=== PATIENT | female | born 1955 | race Caucasian/White ===

== ENCOUNTER → 2018-07-09 11:02 | Outpatient (CLI) | payer BC, SELFPAY ==
--- NOTE | 2018-07-09 | DI.RAD.S_ITS ---
PROCEDURE: XR ABDOMEN MIN 2V INDICATIONS: KIDNEY STONES TECHNIQUE: 2 views of the abdomen were acquired. COMPARISON: [facility], NARA HERNANDEZ XRAY (1 VIEW ABDOMEN), 03/28/2017, 7:50. FINDINGS: Surgical changes and devices: None. Bowel: No pneumoperitoneum. The bowel gas pattern is normal. Soft tissues: No masses; visualized solid organ contours appear normal in size. 2 calcifications project over the expected upper pole kidney on the left measuring 2 and 3 mm. No calcifications are in the expected locations of the ureters. Bones: No suspicious bony abnormalities. IMPRESSION: Possible, likely nonobstructing left intrarenal calcifications. Dictated by: Taylor Calvert M.D. on 07/09/2018 at 13:54 Approved by: Taylor Calvert M.D. on 07/09/2018 at 13:57
--- NOTE | 2018-07-09 | DI.US.S_ITS ---
PROCEDURE: US THYROID INDICATIONS: Thyrotoxicosis with toxic single thyroid nodule TECHNIQUE: Real-time scanning was performed of the thyroid gland, with image documentation. COMPARISON: None. FINDINGS: Right: Thyroid lobe measures 4.2 x 1.9 x 2.3 cm, and is heterogeneous in echotexture. Left: Thyroid lobe measures 4.6 x 1.8 x 1.7 cm, and is heterogeneous in echotexture. Isthmus: 4 mm thick. Dominant nodules are described as follows: Nodule number: 1 Location: Right middle Size: 1.4 x 0.8 x 1.2 cm. Composition: Solid Echogenicity: Iso-to minimally hypoechoic Shape: wider than tall. Margins: Indistinct Echogenic foci: None Total points: 3 ACR TI-RADS category: Mildly suspicious, continued followup recommended Nodular area number: 2 Location: Deep aspect of the right inferior lobe Size: Approximately 2.3 x 0.8 x 1.2 cm. Composition: predominantly cystic area without a discrete shape Echogenicity: Hypoechoic Shape: wider than tall. Margins: Indistinct Echogenic foci: Occasional punctate Nodule number: 3 Location: Right inferior pole Size: 1.3 x 1.0 x 1.1 cm. Composition: Solid Echogenicity: Hypoechoic Shape: wider than tall. Margins: Smooth Echogenic foci: None Total points: 4 ACR TI-RADS category: Moderately suspicious, continued followup Nodule number: 4 Location: Left superior pole Size: 1.5 x 0.9 x 1.1 cm. although this likely represents 2 nodules measure together. Composition: Solid Echogenicity: Hypoechoic Shape: wider than tall. Margins: Smooth Echogenic foci: None Total points: 4 ACR TI-RADS category: Moderately suspicious, continued followup Nodular area number: 5 Location: Left midpole Size: 1.5 x 0.6 x 1.0 cm. This likely represents a few nodules measure together Composition: Predominantly solid Shape: Wider than tall. Echogenicity: Hypoechoic Margins: Smooth Echogenic foci: None. Total points: 4 ACR TI-RADS category: Moderately suspicious, continued followup. Nodule number: 6 Location: Isthmus Size: 0.6 x 0.5 x 0.6 cm Composition: Solid Echogenicity: Isoechoic Shape: Wider than tall Margin: Smooth Echogenic foci: None Total points: 4 ACR TI-RADS category: Moderately suspicious, continued followup. IMPRESSION: 1. Multinodular thyroid gland as described. 2. Based on ACR criteria, multiple nodules are moderately suspicious and continued followup as described below is recommended. ACR TI-RADS definitions and recommendations: TI-RADS 1 (benign): 0 points. FNA not needed. TI-RADS 2 (not suspicious): 2 points. FNA not needed. TI-RADS 3 (mildly suspicious): 3 points. * FNA if 2.5 cm or larger, follow up if 1.5 cm or larger (at 1, 3, and 5 years). TI-RADS 4 (moderately suspicious): 4-6 points. * FNA if 1.5 cm or larger, follow up if 1 cm or larger (at 1, 2, 3, and 5 years). TI-RADS 5 (highly suspicious): 7 points or more. * FNA if 1 cm or larger, follow up if 0.5 cm or larger (every year for 5 years). Dictated by: Taylor Calvert M.D. on 07/09/2018 at 13:38 Approved by: Taylor Calvert M.D. on 07/09/2018 at 13:54
== END ==
PROVIDERS: PCP Internal Medicine; Visit Provider Internal Medicine
DX: E05.20 Thyrotoxicosis with toxic multinodular goiter without thyrotoxic crisis or storm (principal); N20.0 Calculus of kidney
CPT/HCPCS: 74019; 76536

== ENCOUNTER → 2018-07-30 09:39 | Outpatient (CLI) | payer BC, SELFPAY ==
--- NOTE | 2018-07-30 | DI.MG.S_ITS ---
BILATERAL DIGITAL SCREENING MAMMOGRAM 3D/2D WITH CAD: 07/30/2018 CLINICAL: Routine screening. Family history of breast cancer. Comparison is made to exams dated: 07/24/2017 mammogram, 05/20/2015 mammogram, and 07/05/2016 mammogram - [facility]. There are scattered fibroglandular elements in both breasts. Current study was also evaluated with a Computer Aided Detection (CAD) system. There are benign calcifications in both breasts. No significant masses, calcifications, or other findings are seen in either breast. There has been no significant interval change. IMPRESSION: There is no mammographic evidence of malignancy. A 1 year screening mammogram is recommended. This exam was interpreted at Station ID: [id number]. NOTE: For mammograms, a report in lay terms will be sent to the patient. Approximately 15% of breast malignancies will not be visualized mammographically. In the management of a palpable breast mass, a negative mammogram must not discourage biopsy of a clinically suspicious lesion. Electronically Signed By: [place] el/radhames:07/30/2018 12:08:38 letter sent: Normal Exam ACR BI-RADS Category 2: Benign Finding(s) 3342F
== END ==
PROVIDERS: PCP Internal Medicine; Visit Provider Internal Medicine
DX: Z12.31 Encounter for screening mammogram for malignant neoplasm of breast (principal); Z80.3 Family history of malignant neoplasm of breast
CPT/HCPCS: 77063; 77067

== ENCOUNTER → 2019-01-29 12:27 | Outpatient (CLI) | payer BC, SELFPAY ==
[2019-01-29 12:38] LABS: WBC Urine None Seen (0-5/HPF)
[2019-01-29 12:58] LABS: Appearance Urine UA CLEAR; Bilirubin Urine UA NEGATIVE (NEGATIVE); Color Urine UA YELLOW; Glucose Urine UA NEGATIVE (Negative); Ketones Urine UA NEGATIVE (NEGATIVE); Leukocyte Esterase Urine UA NEGATIVE (NEGATIVE); Nitrite Urine UA NEGATIVE (Negative); Occult Blood Urine UA 1+ (Negative); Protein Urine UA NEGATIVE (Negative); Urobilinogen Urine UA 0.2 E.U./dL (0.2)
[2019-01-29 12:59] LABS: Add Manual Diff / Slide Review NO; Basophils Absolute Auto 0 /uL (0-100); Basophils Percent Auto 0.8 % (0-2); Eosinophils Absolute Auto 100 /uL (0-450); Eosinophils Percent Auto 2.6 % (2-4); Hematocrit 44.8 % (36-46); Hemoglobin 14.9 g/dL (12.0-16.0); Lymphocytes Absolute Auto 1200 /uL (1100-4500); Lymphocytes Percent Auto 31.5 % (25-40); Mean Corpuscular HGB Conc 33.2 % (30-36); Mean Corpuscular Hemoglobin 28.5 PG (26-34); Mean Corpuscular Volume 85.7 fL (80-100); Monocytes Absolute Auto 500 /uL (0-900); Neutrophils Absolute Auto 2000 /uL (1500-7000); Neutrophils Percent Auto 52.1 % (50-75); Platelet Count 232 X10^3/uL (150-400); Red Blood Cell Count 5.23 X10^6/uL (4.0-5.2); Red Cell Distribution Width 13.2 % (11.6-14.8); White Blood Cell Count 3.9 X10^3/uL (4.5-11.0)
[2019-01-29 13:12] LABS: pH Urine UA 7.5 (4.5-8.0)
[2019-01-29 13:13] LABS: Bacteria Urine Occasional (0-1); Culture Indicated Urine Cult Not Indicated; RBC Urine 0-1/HPF (0-5/HPF)
[2019-01-29 13:19] LABS: Erythrocyte Sedimentation Rate 6 MM/HR (0-20)
[2019-01-29 13:54] LABS: Alanine Aminotransferase 22 IU/L (9-52); Albumin 4.3 g/dL (3.5-5.0); Albumin Globulin Ratio 1.3 (1.0-2.8); Alkaline Phosphatase 90 U/L (38-126); Amylase 58 U/L (30-110); Aspartate Aminotransferase 20 IU/L (14-36); Bilirubin Total 0.8 mg/dL (0.2-1.3); Blood Urea Nitrogen 18 mg/dL (7-17); C-Reactive Protein Quant 0.9 mg/dL (<1.0); Calcium 10.6 mg/dL (8.4-10.2); Carbon Dioxide 28 mmol/L (22-32); Chloride 102 mmol/L (98-107); Estimated Glomerular Filt Rate > 60.0 mL/min (>60); Globulin 3.2 g/dL (1.7-4.1); Glucose 108 mg/dL (80-110); Lipase 147 U/L (23-300); Potassium 4.6 mmol/L (3.4-5.1); Sodium 141 mmol/L (137-145); Total Protein 7.5 g/dL (6.3-8.2)
[2019-01-29 13:58] LABS: HEMOLYSIS 0 (0-50)
[2019-01-29 17:33] LABS: TSH w/ Reflex to FT4 1.19 uIU/mL (0.47-4.68)
[2019-01-31 13:55] LABS: Complement C3 148 mg/dL (83-193)
== END ==
PROVIDERS: PCP Internal Medicine; Visit Provider Internal Medicine Rheumatology
DX: M32.9 Systemic lupus erythematosus, unspecified (principal); R53.83 Other fatigue; R10.9 Unspecified abdominal pain
CPT/HCPCS: 36415; 80053; 81001; 82150; 83690; 84443; 85025; 85651; 86140; 86160

== ENCOUNTER 2019-03-25 22:29 | Emergency (ER) | payer BC, SELFPAY ==
--- NOTE | 2019-03-25 22:38 | PC.NURSE ---
Pt actively vomiting in triage. Dr Bhat notified, verbal order received for JUNG barrientos
[2019-03-25] MEDS: ONDANSETRON 4 MG ODT SL (22:40)
[2019-03-25 22:44] VITALS: BP 202/115; PULSE 80; RESP 14; TEMP 36.8; O2SAT 96; BMI 34.7
--- NOTE | 2019-03-25 23:17 | ED_ITS ---
HPI - General Adult General Chief complaint: Abdominal Pain Stated complaint: abd, back, intestinal pain and vomiting Time Seen by Provider: 03/25/19 23:11 Source: patient and family Mode of arrival: Wheelchair Limitations: no limitations History of Present Illness HPI narrative: 63-year-old female here for evaluation of sudden onset of right- sided abdominal pain. She states that she was at her home when pain suddenly started. She states she became diaphoretic. Had some nausea. Sharp pain. Is worse with palpation. Has urinated since the onset of the symptoms which did not seem to change any of her pain. Has not had a bowel movement. No vaginal bleeding. Has had a hysterectomy but no other abdominal surgeries. States that 15 years ago she had a left-sided kidney stone that according to her description apparently had to have lithotripsy. She states that symptoms she is having today is not the same as the symptoms she had 15 years ago. Related Data Home Medications Medication Instructions Recorded Confirmed omeprazole 20 mg PO PRN PRN #0 09/09/11 08/20/18 VITAMIN D (Vitamin D3) 2,000 iu PO QDAY #0 07/19/16 08/20/18 hydroxychloroquine 200 mg PO AMCC #0 07/19/16 08/20/18 mirabegron [Myrbetriq] 50 mg PO QDAY #0 07/19/16 08/20/18 losartan 100 mg tablet 100 mg PO DAILY 04/01/18 08/20/18 Previous Rx's Medication Instructions Recorded aspirin 81 mg PO BID #60 tab 07/26/16 oxycodone 5 mg PO Q4HP PRN #90 tab 07/26/16 hydroxyzine pamoate [Vistaril] 25 mg PO Q4HP PRN #60 cap 07/27/16 erythromycin 0.5 inch OPHTH Q4HWA #3.5 gm 04/14/17 zolpidem 5 mg tablet 5 mg PO BEDTIME PRN #30 tab 03/04/19 hydrocodone-acetaminophen [Livermore] 1 tab PO Q4-6H PRN #14 tab 03/26/19 ondansetron 4 mg PO Q6H PRN #10 tab 03/26/19 Allergies Allergy/AdvReac Type Severity Reaction Status Date / Time Sulfa (Sulfonamide Allergy Unknown Verified 03/25/19 22:47 Antibiotics) [SULFA (SULFONAMIDE ANTIBIOTICS)] lisinopril [LISINOPRIL] AdvReac Mild COUGH Verified 03/25/19 22:47 Review of Systems Constitutional Constitutional: Reports chills and Denies fever(s) Comments: Diaphoresis Cardiovascular Cardiovascular: Denies chest pain and Denies dyspnea Respiratory Respiratory: Denies dyspnea Gastrointestinal Gastrointestinal: Reports abdominal pain, Denies change in stool character, Rep orts nausea and Denies vomiting Genitourinary Genitourinary: Denies dysuria and Denies vaginal discharge Musculoskeletal Musculoskeletal: Denies myalgias and Denies arthralgias Integumentary/Breasts Skin/Breast: Denies rash Neurologic Neurologic: Denies behavioral changes Psychiatric Psychiatric: Denies behavioral changes Hematologic/Lymphatic Hematologic/Lymphatic: Denies easy bleeding and Denies easy bruising Patient History Medical History Obstructive sleep apnea of adult (Chronic) Periodic limb movement disorder (PLMD) (Suspected) Restless leg syndrome (Suspected) Social History Smoking Status: Never smoker Smoking Status: Never smoker alcohol intake frequency: 0-2 drinks per day Alcohol type: wine Substance Use Type: does not use Exam Initial Vital Signs Initial Vital Signs: Vital Signs Temperature 98.3 F 03/25/19 22:44 Pulse Rate 80 03/25/19 22:44 Respiratory Rate 14 03/25/19 22:44 Blood Pressure 202/115 H 03/25/19 22:44 Pulse Oximetry 96 03/25/19 22:44 Const General: cooperative and No comfortable (Uncomfortable) Orientation: alert, awake and oriented x3 HENMT Head: normal to inspection and normocephalic Resp Effort & Inspection: normal respiratory effort Auscultation: clear to auscultation bilaterally Cardio Rate: regular rate Rhythm: regular rhythm GI Inspection: non-distended Palpation: soft, No firm and tender Back/Spine/Pelvis Back: No CVA tenderness Skin Lesions: no lesions Rashes: no rashes Neuro General: alert and awake Cognition: normal cognition Speech: speech normal Extrem General: normal to inspection and capillary refill normal Psych Appearance: grossly normal and well kempt Course Orders Ordered: ED Orders 03/25/19 22:40 Complete Blood Count AUTO DIFF Stat Comprehensive Metabolic Panel Stat Lipase Stat 03/25/19 23:18 CT abdomen pelvis w con Stat Discontinued Medications Hydrocodone Bitart/Acetaminophen (Vicodin 5/325 Prepack) 1 bottle MISC SEEINSTR ONE Stop: 03/26/19 00:45 Last Admin: 03/26/19 00:50 Dose: 1 bottle Documented by: SUHAS Sodium Chloride (Normal Saline 0.9%) 1,000 mls @ 1,000 mls/hr IV BOLUS ONE Stop: 03/26/19 00:16 Last Infusion: 03/26/19 00:16 Dose: 1,000 mls/hr Documented by: Admin: 03/25/19 23:22 Dose: 1,000 mls/hr Documented by: SUHAS Morphine Sulfate (Morphine) 4 mg IV NOW ONE Stop: 03/25/19 23:18 Last Admin: 03/25/19 23:21 Dose: 4 mg Documented by: SUHAS Ondansetron HCl (Zofran Odt) 4 mg SL NOW ONE Stop: 03/25/19 22:38 Last Admin: 03/25/19 22:40 Dose: 4 mg Documented by: SUHAS Ondansetron HCl (Zofran Odt Prepack) 1 bottle MISC SEEINSTR ONE Stop: 03/26/19 00:45 Last Admin: 03/26/19 00:50 Dose: 1 bottle Documented by: SUHAS Vital Signs Vital signs: Vital Signs - 8 hr 03/25/19 22:44 03/26/19 00:52 Temperature 98.3 F Pulse Rate 80 87 Respiratory Rate 14 Blood Pressure 202/115 H Blood Pressure [Left Arm] 127/70 Pulse Oximetry 96 94 Medical Decision Making Lab Data Lab results reviewed: Yes I reviewed the patient's lab results. Result diagrams: 03/25/19 22:40 03/25/19 22:40 Labs: Lab Results 03/25/19 03/25/19 Range/Units 22:40 22:40 WBC 8.3 (4.5-11.0) X10^3/uL RBC 5.11 (4.0-5.2) X10^6/uL Hgb 14.8 (12.0-16.0) g/dL Hct 43.8 (36-46) % MCV 85.7 (80-100) fL MCH 29.0 (26-34) PG MCHC 33.8 (30-36) % RDW 13.4 (11.6-14.8) % Plt Count 219 (150-400) X10^3/uL Neut % (Auto) 78.8 H (50-75) % Lymph % (Auto) 13.9 L (25-40) % [place] % (Auto) 6.4 (3-14) % Eos % (Auto) 0.6 L (2-4) % Baso % (Auto) 0.3 (0-2) % Neut # (Auto) 6600 (8202-7494) /uL Lymph # (Auto) 1200 (7688-1152) /uL [place] # (Auto) 500 (0-900) /uL Eos # (Auto) 100 (0-450) /uL Baso # (Auto) 0 (0-100) /uL Sodium 140 (137-145) mmol/L Potassium 3.7 (3.4-5.1) mmol/L Chloride 103 (98-107) mmol/L Carbon Dioxide 28 (22-32) mmol/L BUN 18 H (7-17) mg/dL Creatinine 0.80 (0.52-1.04) mg/dL Estimated GFR > 60.0 (>60) mL/min BUN/Creatinine Ratio 22.5 H (6-22) Glucose 157 H (80-110) mg/dL Calcium 9.8 (8.4-10.2) mg/dL Total Bilirubin 0.8 (0.2-1.3) mg/dL AST 25 (14-36) IU/L ALT 24 (<35) IU/L Alkaline Phosphatase 90 (38-126) U/L Total Protein 7.7 (6.3-8.2) g/dL Albumin 4.6 (3.5-5.0) g/dL Globulin 3.1 (1.7-4.1) g/dL Albumin/Globulin Ratio 1.5 (1.0-2.8) Lipase 113 (23-300) U/L Urine Dip Bedside Urine Glucose Negative Bedside Urine Bilirubin - Negative Bedside Urine Ketone +/- 5 Urine Specific [place] 1.010 Bedside Urine Occult Blood +++ Bedside Urine pH 6.5 Bedside Urine Protein +/- 15 Bedside Urine Urobilinogen +/- 1mg Bedside Urine Nitrite - Negative Bedside Urine Leukocytes - Negative Esterase Point of care testing: Urine Dip Bedside Urine Glucose Negative Bedside Urine Bilirubin - Negative Bedside Urine Ketone +/- 5 Urine Specific [place] 1.010 Bedside Urine Occult Blood +++ Bedside Urine pH 6.5 Bedside Urine Protein +/- 15 Bedside Urine Urobilinogen +/- 1mg Bedside Urine Nitrite - Negative Bedside Urine Leukocytes - Negative Esterase Imaging Data CT scan - abdomen: Radiologist's impression: Right obstructive uropathy secondary to a 2.5 mm mid ureteral calculus MDM Narrative Medical decision making narrative: Improvement in symptoms after medications. Labs unremarkable. Creatinine unremarkable. Urine shows hematuria however no signs of infection. CT scan shows right-sided renal calculus which is consistent with the patient's symptoms. No signs of infection. No indication for antibiotics. I did discuss CT findings with the patient. No other surgical pathology found. No indication for emergent urologic referral or evaluation. Will send home with symptom treatment. She was given return precautions and follow-up instructions. She expressed understanding agreement plan. Discharge Plan Departure Patient Disposition: Home Clinical Impression: Renal colic on right side Discharge Date/Time: 03/26/19 01:02 Instructions: DI for Kidney Stones Activity Restrictions/Additional Instructions: Be sure to increase your fluid intake. You can continue all of your medications as directed. Return to the emergency department for any new or worsening symptoms. Prescriptions: New hydrocodone-acetaminophen [Livermore] 5-325 mg tablet 1 tab PO Q4-6H PRN (Reason: pain) Qty: 14 RF: 0 ondansetron 4 mg tablet,disintegrating 4 mg PO Q6H PRN (Reason: nausea and vomiting) Qty: 10 RF: 0 No Action omeprazole 20 MG capsule,delayed release(DR/EC) 20 mg PO PRN PRNQty: 0 RF: 0 hydroxychloroquine 200 MG tablet 200 mg PO AMCC Qty: 0 RF: 0 mirabegron [Myrbetriq] 50 MG tablet extended release 24 hr 50 mg PO QDAY Qty: 0 RF: 0 VITAMIN D (Vitamin D3) 2,000 iu PO QDAY Qty: 0 RF: 0 aspirin 81 MG tablet,delayed release (DR/EC) 81 mg PO BID Qty: 60 RF: 0 oxycodone 5 MG tablet 5 mg PO Q4HP PRNQty: 90 RF: 0 hydroxyzine pamoate [Vistaril] 25 MG capsule 25 mg PO Q4HP PRNQty: 60 RF: 1 erythromycin 1 GM ointment 0.5 inch OPHTH Q4HWA Qty: 3.5 RF: 0 losartan 100 mg tablet 100 mg PO DAILY RF: 0 zolpidem 5 mg tablet 5 mg PO BEDTIME PRN (Reason: insomnia) Qty: 30 RF: 2 Referrals: Sd Lyon MD [Primary Care Provider] -
--- NOTE | 2019-03-25 23:18 | DI.CT.S_ITS ---
PROCEDURE: CT ABDOMEN PELVIS W CON INDICATIONS: Right-sided abdominal pain TECHNIQUE: After the administration of intravenous contrast, 5 mm thick sections acquired from the diaphragm to the symphysis. 5 mm coronal and sagittal reformats were acquired. For radiation dose reduction, the following was used: automated exposure control, adjustment of mA and/or kV according to patient size. COMPARISON: None. FINDINGS: Image quality: Excellent. ABDOMEN: Lung bases: Lung bases are clear. Heart size is normal. Solid organs: Liver is normal in size and enhancement. Tiny left lobe hepatic cyst. Gallbladder is normal. Biliary system is non dilated. Pancreas enhances normally. Spleen is normal in size and enhancement. No adrenal nodules. The right kidney demonstrates mild hydronephrosis and there is mild right proximal hydroureter and trace periureteric stranding. At the level of the iliac crest, there is a 3 mm ureteral stone. Within the upper pole of left kidney, there are 2 nonobstructing 3 mm stones. No left-sided hydronephrosis or hydroureter. Peritoneum and bowel: Bowel loops demonstrate normal wall thickness and caliber. No free fluid or air. Nodes and vessels: No retroperitoneal or mesenteric adenopathy by size criteria. Aorta and inferior vena cava are normal in size. Miscellaneous: No ventral hernias. PELVIS: Genitourinary: Bladder wall thickness is normal. The uterus is surgically absent. Ovarian tissue appears normal. Miscellaneous: No inguinal hernias or adenopathy. Bones: No suspicious bony lesions. No vertebral body compression fractures. IMPRESSION: 1. 3 mm right mid ureteral calculus causing mild hydroureteronephrosis proximally. 2. Nonobstructing left upper pole intrarenal calcifications. 3. Normal appendix. 4. Hysterectomy. 5. Concordant with preliminary report. Dictated by: Taylor Calvert M.D. on 03/26/2019 at 8:52 Approved by: Taylor Calvert M.D. on 03/26/2019 at 8:57
[2019-03-25] MEDS: MORPHINE 4 MG/ML INJ IV (23:21)
[2019-03-25] MEDS: SODIUM CHLORIDE 0.9% 1,000 ML 1000 ML IV (23:22)
[2019-03-25 23:23] LABS: Add Manual Diff / Slide Review NO; Basophils Absolute Auto 0 /uL (0-100); Basophils Percent Auto 0.3 % (0-2); Eosinophils Absolute Auto 100 /uL (0-450); Eosinophils Percent Auto 0.6 % (2-4); Hematocrit 43.8 % (36-46); Hemoglobin 14.8 g/dL (12.0-16.0); Lymphocytes Absolute Auto 1200 /uL (1100-4500); Lymphocytes Percent Auto 13.9 % (25-40); Mean Corpuscular HGB Conc 33.8 % (30-36); Mean Corpuscular Volume 85.7 fL (80-100); Monocytes Absolute Auto 500 /uL (0-900); Monocytes Percent Auto 6.4 % (3-14); Neutrophils Absolute Auto 6600 /uL (1500-7000); Neutrophils Percent Auto 78.8 % (50-75); Platelet Count 219 X10^3/uL (150-400); Red Blood Cell Count 5.11 X10^6/uL (4.0-5.2); Red Cell Distribution Width 13.4 % (11.6-14.8); White Blood Cell Count 8.3 X10^3/uL (4.5-11.0)
[2019-03-25 23:29] LABS: Alanine Aminotransferase 24 IU/L (<35); Albumin 4.6 g/dL (3.5-5.0); Albumin Globulin Ratio 1.5 (1.0-2.8); Alkaline Phosphatase 90 U/L (38-126); Aspartate Aminotransferase 25 IU/L (14-36); BUN Creatinine Ratio 22.5 (6-22); Bilirubin Total 0.8 mg/dL (0.2-1.3); Blood Urea Nitrogen 18 mg/dL (7-17); Calcium 9.8 mg/dL (8.4-10.2); Carbon Dioxide 28 mmol/L (22-32); Chloride 103 mmol/L (98-107); Estimated Glomerular Filt Rate > 60.0 mL/min (>60); Globulin 3.1 g/dL (1.7-4.1); Glucose 157 mg/dL (80-110); HEMOLYSIS < 15 (0-50); Lipase 113 U/L (23-300); Potassium 3.7 mmol/L (3.4-5.1); Sodium 140 mmol/L (137-145); Total Protein 7.7 g/dL (6.3-8.2)
[2019-03-26] MEDS: HYDROCODONE/ACET 5/325 PREPACK 1 BOTTLE MISC (00:50)
[2019-03-26] MEDS: ONDANSETRON 4 MG ODT PREPACK 1 BOTTLE MISC (00:50)
[2019-03-26 00:52] VITALS: BP 127/70; PULSE 87; O2SAT 94
== END 2019-03-26 01:02 | disposition home or self-care (01) ==
PROVIDERS: Emergency Provider Emergency Medicine; Family Provider Internal Medicine; PCP Internal Medicine
DX: N20.0 Calculus of kidney (principal)
CPT/HCPCS: 36415; 74177; 80053; 81003; 83690; 85025; 96374; 99281; 99284; J2270; Q9967

== ENCOUNTER → 2019-04-11 10:55 | Outpatient (CLI) | payer BC, SELFPAY ==
--- NOTE | 2019-04-11 | DI.RAD.S_ITS ---
PROCEDURE: XR KUB INDICATIONS: Calculus of ureter Right TECHNIQUE: One view of the abdomen acquired. COMPARISON: [facility], CT, CT ABDOMEN PELVIS W CON, 03/25/2019, 23:26. [facility], CR, KUB XRAY (1 VIEW ABDOMEN), 03/28/2017, 7:50. FINDINGS: Surgical changes and devices: None. Bowel: Bowel gas pattern is nonobstructive. Soft tissues: Punctate densities are identified projecting over the left renal silhouette appear to correlate with the renal calcifications seen on comparison CT of the abdomen and pelvis from 03/25/19. There is no convincing radiographic correlate for the previously described 3 mm right mid ureteral calculus identified on comparison CT of 03/25/19. Bones: There are mild multilevel degenerative changes of the lumbar spine and bilateral hip joints. IMPRESSION: 1. Punctate densities projecting over the left renal silhouette appear to correlate with the renal calcifications seen on comparison CT of the abdomen and pelvis from 03/25/19. 2. No convincing radiographic correlate for the previously described 3 mm right mid ureteral calculus identified on comparison CT of 03/25/19. Dictated by: Shai Mitchell M.D. on 04/11/2019 at 14:37 Approved by: Shai Mitchell M.D. on 04/11/2019 at 16:36
== END ==
PROVIDERS: PCP Internal Medicine; Visit Provider Internal Medicine
DX: N20.1 Calculus of ureter (principal); M47.816 Spondylosis without myelopathy or radiculopathy, lumbar region
CPT/HCPCS: 74018

== ENCOUNTER → 2019-09-29 13:39 | Outpatient (CLI) | payer BC, SELFPAY ==
--- NOTE | 2019-09-29 | DI.RAD.S_ITS ---
PROCEDURE: XR KUB INDICATIONS: Kidney stones, ureterolithiasis TECHNIQUE: One view of the abdomen acquired. COMPARISON: [facility], CR, XR KUB, 04/11/2019, 10:59. FINDINGS: Surgical changes and devices: None. Bowel: Bowel gas pattern is normal. Soft tissues: No suspicious abdominal calcifications. Visualized solid organ contours appear normal in size. Bones: No suspicious bony lesions. Lower lumbar spondylosis and lateral curvature of the spine. Bilateral mild hip joint degeneration. IMPRESSION: No definite radiographically visible nephrolithiasis Dictated by: Riccardo Riojas M.D. on 09/29/2019 at 15:23 Approved by: Riccardo Riojas M.D. on 09/29/2019 at 15:30
== END ==
PROVIDERS: PCP Internal Medicine; Referring Provider Physician Assistant; Visit Provider Physician Assistant
DX: N20.2 Calculus of kidney with calculus of ureter (principal); M16.0 Bilateral primary osteoarthritis of hip; M47.816 Spondylosis without myelopathy or radiculopathy, lumbar region
CPT/HCPCS: 74018

== ENCOUNTER → 2019-11-13 16:40 | Outpatient (CLI) | payer BC, SELFPAY ==
--- NOTE | 2019-11-13 | DI.MG.S_ITS ---
BILATERAL DIGITAL SCREENING MAMMOGRAM 3D/2D WITH CAD: 11/13/2019 CLINICAL: Routine screening. Family history of breast cancer. Comparison is made to exams dated: 07/30/2018 mammogram, 07/24/2017 mammogram, and 07/05/2016 mammogram - [facility]. There are scattered fibroglandular elements in both breasts. Current study was also evaluated with a Computer Aided Detection (CAD) system. There are benign calcifications in both breasts. No significant masses, calcifications, or other findings are seen in either breast. There has been no significant interval change. IMPRESSION: There is no mammographic evidence of malignancy. A 1 year screening mammogram is recommended. This exam was interpreted at Station ID: [id number]. NOTE: For mammograms, a report in lay terms will be sent to the patient. Approximately 15% of breast malignancies will not be visualized mammographically. In the management of a palpable breast mass, a negative mammogram must not discourage biopsy of a clinically suspicious lesion. Electronically Signed By: Cecilio burt/radhames:11/13/2019 17:47:36 letter sent: Normal Exam ACR BI-RADS Category 2: Benign Finding(s) 3342F
== END ==
PROVIDERS: PCP Internal Medicine; Referring Provider Internal Medicine; Visit Provider Internal Medicine
DX: Z12.31 Encounter for screening mammogram for malignant neoplasm of breast (principal); Z80.3 Family history of malignant neoplasm of breast
CPT/HCPCS: 77063; 77067

== ENCOUNTER → 2019-12-30 09:53 | Outpatient (CLI) | payer MEDICARE, SELFPAY ==
--- NOTE | 2019-12-30 | DI.US.S_ITS ---
PROCEDURE: US THYROID INDICATIONS: THYROID NODULE TECHNIQUE: Real-time scanning was performed of the thyroid gland, with image documentation. COMPARISON: [facility], US, US THYROID, 07/09/2018, 11:36. FINDINGS: Right: Thyroid lobe measures 5.7 x 1.6 x 2.2 cm, and is homogeneous in echotexture. Left: Thyroid lobe measures 5.1 x 1.5 x 1.6 cm, and is homogenous in echotexture. Isthmus: 3-4 mm thick. Nodule number: 1 Location: Right mid lobe Size: 2.4 x 0.9 x 1.9 cm. Previously 1.4 x 0.8 x 1.2 Composition: Solid Echogenicity: Isoechoic Shape: wider than tall. Margins: Smooth Echogenic foci: None Total points: 3 ACR TI-RADS category: Mildly suspicious Nodule number: 2 Location: Right lobe Size: 2.5 x 1.2 x 1.5 cm. Previously 2.3 x 0.8 x 1.2 cm Composition: Solid Echogenicity: Hypoechoic Shape: wider than tall. Margins: Smooth Echogenic foci: None Total points: 4 ACR TI-RADS category: Moderately suspicious Nodule number: 3 Location: Right lobe Size: 1.2 x 0.9 x 1.1 cm, previously 1.3 x 1.0 x 1.1 cm. Composition: Solid Echogenicity: Hypoechoic Shape: wider than tall. Margins: Smooth Echogenic foci: None Total points: 4 ACR TI-RADS category: Moderately suspicious Nodule number: 4 Location: Left lobe Size: 1.5 x 1.0 x 1.3 cm. Previously 1.5 x 0.6 x 1.0 cm Composition: Solid Echogenicity: Hypoechoic Shape: wider than tall. Margins: Smooth Echogenic foci: None Total points: 4 ACR TI-RADS category: Moderately suspicious Nodule number: 5 Location: Left Size: 0.8 x 0.4 x 0.4 cm. Composition: Solid Echogenicity: Hypoechoic Shape: wider than tall. Margins: Smooth Echogenic foci: None Total points: 4 ACR TI-RADS category: Moderately suspicious Nodule number: 6 Location: Isthmus Size: 0.6 x 0.5 x 0.6 cm. The Composition: Cystic Echogenicity: Isoechoic Shape: wider than tall. Margins: Smooth Echogenic foci: None Total points: 1 ACR TI-RADS category: Benign IMPRESSION: Recommend ultrasound-guided FNA of nodule designated #2 in the right lobe. Recommend continued surveillance of the remaining thyroid nodules. ACR TI-RADS definitions and recommendations: TI-RADS 1 (benign): 0 points. FNA not needed. TI-RADS 2 (not suspicious): 2 points. FNA not needed. TI-RADS 3 (mildly suspicious): 3 points. * FNA if 2.5 cm or larger, follow up if 1.5 cm or larger (at 1, 3, and 5 years). TI-RADS 4 (moderately suspicious): 4-6 points. * FNA if 1.5 cm or larger, follow up if 1 cm or larger (at 1, 2, 3, and 5 years). TI-RADS 5 (highly suspicious): 7 points or more. * FNA if 1 cm or larger, follow up if 0.5 cm or larger (every year for 5 years). Dictated by: Riccardo Riojas M.D. on 12/30/2019 at 15:51 Approved by: Riccardo Riojas M.D. on 12/30/2019 at 16:06
== END ==
PROVIDERS: PCP Internal Medicine; Referring Provider Internal Medicine; Visit Provider Internal Medicine
DX: E04.2 Nontoxic multinodular goiter (principal)
CPT/HCPCS: 76536

== ENCOUNTER → 2020-01-15 13:37 | Outpatient (CLI) | payer MEDICARE, SELFPAY ==
--- NOTE | 2020-01-15 | DI.US.S_ITS ---
PROCEDURE: US FINE NEEDLE ASPIRATION INDICATIONS: NONTOXIC SINGLE THYROID NODULE TECHNIQUE: The indications, alternatives, benefits, risks, and complications of the procedure were explained to the patient. Written informed consent was obtained and placed in the chart. The thyroid region was examined sonographically and a site was chosen for ultrasound guided percutaneous sampling. The skin was prepared and draped in the usual fashion, and anesthetized with 1% lidocaine infiltrated from the skin down to the thyroid gland. Multiple passes were then performed, with contents emptied into an appropriate pathology specimen container. A bandage was applied to the area of access at completion of the study. COMPARISON: None. FINDINGS: Location(s) of lesion(s) sampled: Mid to lower right lobe [place]: 25 and 22 gauge hypodermic needles. Number of passes: 7 Medications: 1% lidocaine for local anaesthesia. Complications: None. IMPRESSION: Successful ultrasound-guided thyroid nodule fine needle aspiration, with cytology results pending. Please see chart below for management recommendations based on cytology results. [facility] ReportingRecommendationsNon-diagnostic* Repeat US-guided FNA, with on-site cytology evaluation if possible. * Repeated non-diagnostic nodules without high suspicion US features: close observation vs surgical consult. * Consider surgery if nodule has high suspicion US features, grows >20% in 2 dimensions on followup, or patient has clinical risk factors for malignancy. Benign* If nodule has high suspicion US features: repeat US and FNA within 12 months. * If nodule has low to intermediate suspicion US features: repeat US at 12-24 months. If nodule grows (20% increase in at least 2 dimensions, with minimal increase of 2 mm or >50% change in volume), or development of new suspicious US features, then repeat FNA or continue followup. * If nodule has very low suspicion US features: followup US at >24 months. Atypia of undetermined significance, follicular lesion of undetermined significanceRepeat FNA, molecular testing, followup US, or surgical consult.Follicular neoplasm, suspicious for follicular neoplasmSurgical consult; also consider molecular testing. Suspicious for malignancySurgical consult.MalignantSurgical consult. Dictated by: Riccardo Riojas M.D. on 01/15/2020 at 15:51 Approved by: Riccardo Riojas M.D. on 01/15/2020 at 16:25
--- NOTE | 2020-01-15 | PATH_ITS ---
Note [facility] Accession Number: [id number] TESTS RESULT FLAG UNITS REF RANGE LAB Clinician Provided Cytology Information No. of containers..00 Previously Prepared Cytology Slide 35 Unknown Storage/container code(s) RIGHT THYROID NODULE DIAGNOSIS: 02 RIGHT THYROID NODULE NEGATIVE FOR MALIGNANT CELLS. [place] CATEGORY II. SPECIMEN CONSISTS OF BENIGN FOLLICULAR CELLS, HEMOSIDERIN-LADEN MACROPHAGES, COLLOID, AND BLOOD. THIS PATTERN IS CONSISTENT WITH A COLLOID NODULE. Pathologist ICD10: 02 E04.1 01 THYROID NODULE IMAGING: ULTRASOUND: THYROID SONOGRAPHY B-SCAN(ORDER FOR 07/14/2019) 02 Hiral Bonilla MD, Pathologist NPI- [id number] Thomas Garza, Cyber Workforce Developer And Manager ([facility]) 01 30 CC, RED, CLEAR RECIEVED: IN CYTOLYT WITH 5 ALCOHOL FIXED AND 5 QUICK STAINED SLIDES ALSO 1 RNA VIAL WAS RECEIVED FOR FURTHER TESTING. /[facility] 01/16/2020 0807 [place] [employer] FLAG LEGEND: L-Low Normal,H-High Normal,LL-Alert Low,HH-Alert High <-Panic Low,>-Panic High,A-Abnormal,AA-Critical Abnormal Performed at: 01 =Z [facility] [address] [place] [address], [place] [address] Bruno Hodge MD, 02 LCLWA [facility] [place] [address] [place] [address] Iveth Lauren MD, Performed at: [address] [facility], [place], [place] [id number] MD Bruno Hodge MD Phone: [phone]
== END ==
PROVIDERS: PCP Internal Medicine; Referring Provider Internal Medicine; Visit Provider Internal Medicine
DX: E04.1 Nontoxic single thyroid nodule (principal)
CPT/HCPCS: 10005

== ENCOUNTER 2020-01-26 08:30 | Emergency (ER) | payer MEDICARE, SELFPAY ==
[2020-01-26] VITALS (11 sets, daily range): BP systolic 165–202; BP diastolic 79–98; PULSE 66–79; RESP 16; TEMP 36.3; O2SAT 91–98; BMI 34.7
--- NOTE | 2020-01-26 08:37 | DI.CT.S_ITS ---
PROCEDURE: CT KIDNEY URETER BLADDER (KUB) INDICATIONS: left lower quad pain TECHNIQUE: Noncontrast 5 mm thick sections acquired from the diaphragms to the symphysis. 5 mm thick coronal and sagittal reformats were then performed. For radiation dose reduction, the following was used: automated exposure control, adjustment of mA and/or kV according to patient size. COMPARISON: [facility], CT, KIDNEY/ URETER/BLADDER, 01/12/2014, 11:07. FINDINGS: Image quality: Excellent. Lung bases: Lung bases are clear. Heart size is normal. Urinary system: Mildly obstructive proximal left ureteral calcification measuring 4 mm on image 47/2. There is an additional punctate focus more proximally seen on image 42/2 measuring 1 mm. Additional 1-2 mm left nephrolithiasis noted. 1 mm right urolithiasis identified. No perinephric stranding. No bladder calculus is seen. Other solid organs: Liver is normal in size. Gallbladder negative . Pancreas is normal in contours. Spleen is normal in size. No adrenal nodules. Peritoneum and bowel: Unenhanced bowel loops demonstrate normal wall thickness and caliber. No free fluid or air. Normal appendix. Colonic diverticulosis is seen without evidence of acute complication. Nodes and vessels: No retroperitoneal or mesenteric adenopathy by size criteria. Aorta and inferior vena cava are normal in caliber. Abdominal wall: No ventral hernias. Pelvis: No free pelvic fluid. No inguinal hernias or adenopathy. Bones: No suspicious bony lesions. No vertebral body compression fractures. IMPRESSION: Mildly obstructive proximal left 4 mm ureteral calculus. Additional 1 mm possible ureteral calculus more proximally seen as described above. 1-2 mm additional bilateral nephrolithiasis. Additional chronic and incidental findings as above. Dictated by: Riccardo Riojas M.D. on 01/26/2020 at 10:05 Approved by: Riccardo Riojas M.D. on 01/26/2020 at 10:13
--- NOTE | 2020-01-26 08:51 | ED.ABDPAIN ---
HPI - Abdominal Pain General Chief Complaint: Urogenital-Female Stated Complaint: PAIN IN LOWER LEFT ABDOMINAL AREA, VOMITING Time Seen by Provider: 01/26/20 08:36 Source: patient and family Mode of arrival: Family Vehicle History of Present Illness HPI narrative: Patient here with . Had sudden onset of left lower quadrant pain 6 hours ago. Nausea and vomiting at 5:00 a.m.. Feels like kidney stone again, seen here March 2019 for right-sided kidney stone. Four years ago lithotripsy in [place] by Dr. rashid. No recent illness otherwise. No fever chills cough cold congestion. No urinary complaints. No hematuria. Blood pressure noted. She has not taken her blood pressure medication this morning at. She states she will take it at home. Does not want to take it here. Patient also in pain. Which may elevated blood pressure MD complaint: abdominal pain Related Data Home Medications Medication Instructions Recorded Confirmed omeprazole 20 mg PO PRN PRN #0 09/09/11 08/20/18 VITAMIN D (Vitamin D3) 2,000 iu PO QDAY #0 07/19/16 08/20/18 hydroxychloroquine 200 mg PO AMCC #0 07/19/16 08/20/18 mirabegron [Myrbetriq] 50 mg PO QDAY #0 07/19/16 08/20/18 losartan 100 mg tablet 100 mg PO DAILY 04/01/18 08/20/18 Previous Rx's Medication Instructions Recorded aspirin 81 mg PO BID #60 tab 07/26/16 oxycodone 5 mg PO Q4HP PRN #90 tab 07/26/16 hydroxyzine pamoate [Vistaril] 25 mg PO Q4HP PRN #60 cap 07/27/16 erythromycin 0.5 inch OPHTH Q4HWA #3.5 gm 04/14/17 hydrocodone-acetaminophen [[place]] 1 tab PO Q4-6H PRN #14 tab 03/26/19 ondansetron 4 mg PO Q6H PRN #10 tab 03/26/19 zolpidem 5 mg tablet 5 mg PO BEDTIME PRN #30 tab 11/26/19 Allergies Allergy/AdvReac Type Severity Reaction Status Date / Time Sulfa (Sulfonamide Allergy Unknown Verified 03/25/19 22:47 Antibiotics) [SULFA (SULFONAMIDE ANTIBIOTICS)] lisinopril [LISINOPRIL] AdvReac Mild COUGH Verified 03/25/19 22:47 Review of Systems Review of Systems Narrative: GENERAL: Denies chills, fatigue, malaise, fever, sweats. HEENT: Denies sinus pain, ear pain, sore throat, difficulty swallowing, dizziness. RESPIRATORY: Denies dyspnea, cough, wheezing, hemoptysis, sputum. CARDIOVASCULAR: Denies chest pain, palpitations, orthopnea, edema, GASTROINTESTINAL: Complains nausea, vomiting, abdominal pain, denies diarrhea, constipation, melena. : Denies dysuria, frequency, incontinence, hematuria, urinary retention. MUSCULOSKELETAL: denies weakness, joint pain, or bony pain SKIN: Denies rash, skin lesions NEUROLOGIC: Denies weakness, headache, numbness, change in speech, confusion, seizures, incoordination. PSYCHIATRIC: No concerning psychosocial issues. 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 Well-nourished, well-developed patient, in no distress, not toxic HEAD: Atraumatic. Normocephalic. EYES: Pupils equal round and reactive. Extraocular motions intact. No scleral icterus. No injection or drainage. ENT: Nose without bleeding, purulent drainage. Throat without erythema, tonsillar hypertrophy or exudate. Airway patent. NECK: Trachea midline. Non tender CARDIOVASCULAR: Regular rate and rhythm without murmurs, gallops, or rubs. RESPIRATORY: Clear to auscultation. Breath sounds equal bilaterally. No wheezes, rales, or rhonchi. GASTROINTESTINAL: Abdomen soft, mild tenderness touch to the left lower quadrant. No peritoneal signs, bowel sounds present, nondistended. EXTREMITIES: No edema or joint tenderness. BACK: Nontender without deformity or crepitance. No flank tenderness. NEURO: AOx4. SKIN: No rash or erythema of visible areas PSYCH: Not anxious, is cooperative Initial Vital Signs Initial Vital Signs: Vital Signs Temperature 97.4 F L 01/26/20 08:35 Pulse Rate 67 01/26/20 08:35 Respiratory Rate 16 01/26/20 08:35 Blood Pressure 171/79 H 01/26/20 08:35 Pulse Oximetry 97 01/26/20 08:35 Course Course Course Narrative: Pain and nausea control here IV fluids given. Orders Ordered: ED Orders 01/26/20 08:37 CT kidney ureter bladder (KUB) Stat 01/26/20 08:45 Urinalysis and Microscopic Stat 01/26/20 09:11 Complete Blood Count AUTO DIFF Stat Comprehensive Metabolic Panel Stat Lipase Stat Discontinued Medications Hydrochlorothiazide (Hydrochlorothiazide) 12.5 mg PO NOW ONE Stop: 01/26/20 11:15 Last Admin: 01/26/20 11:19 Dose: Not Given Documented by: YARELIS Sodium Chloride (Normal Saline 0.9%) 1,000 mls @ 1,000 mls/hr IV BOLUS ONE Stop: 01/26/20 09:36 Last Infusion: 01/26/20 10:36 Dose: 0 mls/hr Documented by: Admin: 01/26/20 09:20 Dose: 1,000 mls/hr Documented by: YARELIS Ketorolac Tromethamine (Toradol) 15 mg IV NOW ONE Stop: 01/26/20 10:27 Last Admin: 01/26/20 10:33 Dose: 15 mg Documented by: YARELIS Lisinopril (Zestril) 10 mg PO NOW ONE Stop: 01/26/20 11:15 Last Admin: 01/26/20 11:20 Dose: Not Given Documented by: YARELIS Losartan Potassium (Cozaar) 100 mg PO NOW ONE Stop: 01/26/20 11:19 Last Admin: 01/26/20 11:30 Dose: 100 mg Documented by: YARELIS Morphine Sulfate (Morphine) 4 mg IV NOW ONE Stop: 01/26/20 08:38 Last Admin: 01/26/20 09:16 Dose: 4 mg Documented by: YARELIS Ondansetron HCl (Zofran) 4 mg IV NOW ONE Stop: 01/26/20 08:38 Last Admin: 01/26/20 09:16 Dose: 4 mg Documented by: YARELIS Ondansetron HCl (Zofran) 4 mg IV NOW ONE Stop: 01/26/20 10:39 Last Admin: 01/26/20 10:41 Dose: 4 mg Documented by: YARELIS Tamsulosin HCl (Flomax) 0.4 mg PO NOW ONE Stop: 01/26/20 10:24 Last Admin: 01/26/20 10:36 Dose: 0.4 mg Documented by: YARELIS Reevaluation(s) Reevaluation #1: Pain controlled. Reviewed results with patient and . They agree with discharge home and follow-up with local urologist. Blood pressure improved 160/90. Pain resolved. Patient given her losartan here. Time: 11:42 Consultations Consultation #1: Spoke with Urology, Dr. Spears, will see patient in the office. Time: 10:23 Vital Signs Vital signs: Vital Signs - 8 hr 01/26/20 08:35 01/26/20 08:49 01/26/20 09:00 Temperature 97.4 F L Pulse Rate 67 67 69 Respiratory Rate 16 Blood Pressure 171/79 H Pulse Oximetry 97 98 95 01/26/20 09:30 01/26/20 09:43 01/26/20 10:00 Temperature Pulse Rate 67 66 69 Respiratory Rate Blood Pressure 177/84 H 195/91 H Pulse Oximetry 93 93 91 01/26/20 10:30 01/26/20 11:00 01/26/20 11:01 Temperature Pulse Rate 71 67 69 Respiratory Rate Blood Pressure 202/98 H 192/86 H Pulse Oximetry 98 95 95 01/26/20 11:30 01/26/20 11:31 Temperature Pulse Rate 75 73 Respiratory Rate Blood Pressure 193/86 H 165/90 H Pulse Oximetry 96 97 MDM - Abdominal Pain Differential Diagnosis Differential diagnosis: Likely abdominal pain, calculus of kidney, constipation and diverticulitis Medical Records Attestation: I reviewed the patient's medical records. Lab Data Attestation: I reviewed the patient's lab results. Result diagrams: 01/26/20 09:11 01/26/20 09:11 Labs: Lab Results 10/12/20 10/12/20 10/12/20 Range/Units 08:45 09:11 09:11 WBC 6.2 (4.5-11.0) X10^3/uL RBC 5.06 (4.0-5.2) X10^6/uL Hgb 14.6 (12.0-16.0) g/dL Hct 43.4 (36-46) % MCV 85.7 (80-100) fL MCH 28.9 (26-34) PG MCHC 33.8 (30-36) % RDW 13.3 (11.6-14.8) % Plt Count 200 (150-400) X10^3/uL Neut % (Auto) 73.9 (50-75) % Lymph % (Auto) 17.8 L (25-40) % [place] % (Auto) 7.1 (3-14) % Eos % (Auto) 0.9 L (2-4) % Baso % (Auto) 0.3 (0-2) % Neut # (Auto) 4600 (7233-3470) /uL Lymph # (Auto) 1100 (8423-6411) /uL [place] # (Auto) 400 (0-900) /uL Eos # (Auto) 100 (0-450) /uL Baso # (Auto) 0 (0-100) /uL Sodium 140 (137-145) mmol/L Potassium 3.8 (3.4-5.1) mmol/L Chloride 107 (98-107) mmol/L Carbon Dioxide 29 (22-32) mmol/L BUN 19 H (7-17) mg/dL Creatinine 0.64 (0.52-1.04) mg/dL Estimated GFR > 60.0 (>60) mL/min BUN/Creatinine Ratio 29.7 H (6-22) Glucose 143 H (80-110) mg/dL Calcium 9.6 (8.4-10.2) mg/dL Total Bilirubin 1.0 (0.2-1.3) mg/dL AST 23 (14-36) IU/L ALT 24 (<35) IU/L Alkaline Phosphatase 96 (38-126) U/L Total Protein 7.4 (6.3-8.2) g/dL Albumin 4.2 (3.5-5.0) g/dL Globulin 3.2 (1.7-4.1) g/dL Albumin/Globulin Ratio 1.3 (1.0-2.8) Lipase 82 (23-300) U/L Urine Color Yellow Urine Appearance Clear Urine pH 7.0 (4.5-8.0) Ur Specific [place] 1.020 (1.000-1.035) Urine Protein Trace H (Negative) Urine Glucose (UA) Negative (Negative) g/dL Urine Ketones Negative (NEGATIVE) Urine Occult Blood 3+ H (Negative) Urine Nitrate Negative (Negative) Urine Bilirubin Negative (NEGATIVE) Urine Urobilinogen 0.2 (0.2) E.U./dL Ur Leukocyte Esterase Negative (NEGATIVE) Urine RBC >100/hpf H (0-5/HPF) Urine WBC 1-5/hpf (0-5/HPF) Ur Squamous Epith Cells 1-5 /hpf (0-5/HPF) Urine Bacteria Many (>30) H (None) Ur Culture Indicated? Cult not indicated Point of care testing: Urine Dip Bedside Urine Glucose Negative Bedside Urine Bilirubin - Negative Bedside Urine Ketone - Negative Urine Specific [place] 1.020 Bedside Urine Occult Blood +++ Bedside Urine pH 6.5 Bedside Urine Protein +/- 15 Bedside Urine Urobilinogen - Negative Bedside Urine Nitrite - Negative Bedside Urine Leukocytes - Negative Esterase Imaging Data CT scan - abdomen/pelvis: Radiologist's Impression: [place] [address] CT Scan Report Signed Patient: Anna Jason LMR#: [id number] : 5Acct:[id number] Age/Sex: 64 / FDate of Service: 01/26/20 Loc: ED Accession Number: [id number] Procedure: CT kidney ureter bladder (KUB) Ordering Provider: Jermain Montana MD PROCEDURE: CT KIDNEY URETER BLADDER (KUB) INDICATIONS: left lower quad pain TECHNIQUE: Noncontrast 5 mm thick sections acquired from the diaphragms to the symphysis. 5 mm thick coronal and sagittal reformats were then performed. For radiation dose reduction, the following was used: automated exposure control, adjustment of mA and/or kV according to patient size. COMPARISON: [facility], CT, KIDNEY/ URETER/BLADDER, 01/12/2014, 11:07. FINDINGS: Image quality: Excellent. Lung bases: Lung bases are clear. Heart size is normal. Urinary system: Mildly obstructive proximal left ureteral calcification measuring 4 mm on image 47/2. There is an additional punctate focus more proximally seen on image 42/2 measuring 1 mm. Additional 1-2 mm left nephrolithiasis noted. 1 mm right urolithiasis identified. No perinephric stranding. No bladder calculus is seen. Other solid organs: Liver is normal in size. Gallbladder negative . Pancreas is normal in contours. Spleen is normal in size. No adrenal nodules. Peritoneum and bowel: Unenhanced bowel loops demonstrate normal wall thickness and caliber. No free fluid or air. Normal appendix. Colonic diverticulosis is seen without evidence of acute complication. Nodes and vessels: No retroperitoneal or mesenteric adenopathy by size criteria. Aorta and inferior vena cava are normal in caliber. Abdominal wall: No ventral hernias. Pelvis: No free pelvic fluid. No inguinal hernias or adenopathy. Bones: No suspicious bony lesions. No vertebral body compression fractures. IMPRESSION: Mildly obstructive proximal left 4 mm ureteral calculus. Additional 1 mm possible ureteral calculus more proximally seen as described above. 1-2 mm additional bilateral nephrolithiasis. Additional chronic and incidental findings as above. Dictated by: Riccardo Riojas M.D. on 01/26/2020 at 10:05 Approved by: Riccardo Riojas M.D. on 01/26/2020 at 10:13 MDM Narrative Medical decision making narrative: Pain control nausea control. Reviewed results with patient and . They already have ondansetron hydrocodone and Flomax from previous visit. Vitals are nearly full. They do not want refills. They also have ketorolac pills that was written. Inform them do not use more than 2 days of ketorolac. No antibiotics indicated this time. No signs infection on CAT scan or on laboratory studies. Normal white cell count on CBC. No fever. Discharge Plan Departure Patient Disposition: Home Clinical Impression: Left ureteral calculus Discharge Date/Time: 01/26/20 11:55 Instructions: DI for Kidney Stones Activity Restrictions/Additional Instructions: See your urologist in [place] this week for recheck. Or called provided urologist here. Keep well hydrated. No driving today. Make continue ondansetron medication yet at home for nausea. Follow the instructions on the label. May take hydrocodone pain medication that you have for pain, follow-up instructions. Take your tamsulosin medication as prescribed at night to promote movement of the stone. Keep well hydrated. Return if worse or if any questions or concerns. May continue with ketorolac for total of 2 days. As instructed on your instruction bottle Prescriptions: No Action omeprazole 20 MG capsule,delayed release(DR/EC) 20 mg PO PRN PRNQty: 0 RF: 0 hydroxychloroquine 200 MG tablet 200 mg PO AMCC Qty: 0 RF: 0 mirabegron [Myrbetriq] 50 MG tablet extended release 24 hr 50 mg PO QDAY Qty: 0 RF: 0 VITAMIN D (Vitamin D3) 2,000 iu PO QDAY Qty: 0 RF: 0 aspirin 81 MG tablet,delayed release (DR/EC) 81 mg PO BID Qty: 60 RF: 0 oxycodone 5 MG tablet 5 mg PO Q4HP PRNQty: 90 RF: 0 hydroxyzine pamoate [Vistaril] 25 MG capsule 25 mg PO Q4HP PRNQty: 60 RF: 1 erythromycin 1 GM ointment 0.5 inch OPHTH Q4HWA Qty: 3.5 RF: 0 hydrocodone-acetaminophen [[place]] 5-325 mg tablet 1 tab PO Q4-6H PRN (Reason: pain) Qty: 14 RF: 0 ondansetron 4 mg tablet,disintegrating 4 mg PO Q6H PRN (Reason: nausea and vomiting) Qty: 10 RF: 0 losartan 100 mg tablet 100 mg PO DAILY RF: 0 zolpidem 5 mg tablet 5 mg PO BEDTIME PRN (Reason: insomnia) Qty: 30 RF: 2 Referrals: Lucia Spears MD [Physician] - Sd Lyon MD [Primary Care Provider] -
[2020-01-26 09:02] LABS: Appearance Urine UA CLEAR; Bilirubin Urine UA NEGATIVE (NEGATIVE); Color Urine UA YELLOW; Glucose Urine UA NEGATIVE (Negative); Ketones Urine UA NEGATIVE (NEGATIVE); Leukocyte Esterase Urine UA NEGATIVE (NEGATIVE); Nitrite Urine UA NEGATIVE (Negative); Occult Blood Urine UA 3+ (Negative); Protein Urine UA TRACE (Negative); Urobilinogen Urine UA 0.2 E.U./dL (0.2)
[2020-01-26 09:14] LABS: Bacteria Urine Many (>30); RBC Urine >100/HPF (0-5/HPF); Squamous Epithelial Cell Urine 1-5 /HPF (0-5/HPF); WBC Urine 1-5/HPF (0-5/HPF)
[2020-01-26 09:15] LABS: Culture Indicated Urine Cult Not Indicated
[2020-01-26] MEDS: MORPHINE 4 MG/ML INJ IV (09:16)
[2020-01-26] MEDS: ONDANSETRON 4 MG/2 ML INJ IV ×2 (09:16→10:41)
[2020-01-26 09:18] LABS: Add Manual Diff / Slide Review NO; Basophils Absolute Auto 0 /uL (0-100); Basophils Percent Auto 0.3 % (0-2); Eosinophils Absolute Auto 100 /uL (0-450); Eosinophils Percent Auto 0.9 % (2-4); Hematocrit 43.4 % (36-46); Hemoglobin 14.6 g/dL (12.0-16.0); Lymphocytes Absolute Auto 1100 /uL (1100-4500); Lymphocytes Percent Auto 17.8 % (25-40); Mean Corpuscular HGB Conc 33.8 % (30-36); Mean Corpuscular Hemoglobin 28.9 PG (26-34); Mean Corpuscular Volume 85.7 fL (80-100); Monocytes Absolute Auto 400 /uL (0-900); Monocytes Percent Auto 7.1 % (3-14); Neutrophils Absolute Auto 4600 /uL (1500-7000); Neutrophils Percent Auto 73.9 % (50-75); Platelet Count 200 X10^3/uL (150-400); Red Blood Cell Count 5.06 X10^6/uL (4.0-5.2); Red Cell Distribution Width 13.3 % (11.6-14.8); White Blood Cell Count 6.2 X10^3/uL (4.5-11.0)
[2020-01-26] MEDS: SODIUM CHLORIDE 0.9% 1,000 ML 1000 ML IV (09:20)
[2020-01-26 09:29] LABS: Alanine Aminotransferase 24 IU/L (<35); Albumin 4.2 g/dL (3.5-5.0); Albumin Globulin Ratio 1.3 (1.0-2.8); Alkaline Phosphatase 96 U/L (38-126); Aspartate Aminotransferase 23 IU/L (14-36); BUN Creatinine Ratio 29.7 (6-22); Blood Urea Nitrogen 19 mg/dL (7-17); Calcium 9.6 mg/dL (8.4-10.2); Carbon Dioxide 29 mmol/L (22-32); Chloride 107 mmol/L (98-107); Estimated Glomerular Filt Rate > 60.0 mL/min (>60); Globulin 3.2 g/dL (1.7-4.1); Glucose 143 mg/dL (80-110); HEMOLYSIS < 15 (0-50); Lipase 82 U/L (23-300); Potassium 3.8 mmol/L (3.4-5.1); Sodium 140 mmol/L (137-145); Total Protein 7.4 g/dL (6.3-8.2)
[2020-01-26] MEDS: KETOROLAC 60 MG/2 ML VIAL 15 MG IV (10:33)
[2020-01-26] MEDS: TAMSULOSIN 0.4 MG CAPSULE PO (10:36)
[2020-01-26] MEDS: LOSARTAN 50 MG TABLET 100 MG PO (11:30)
== END 2020-01-26 11:55 | disposition home or self-care (01) ==
PROVIDERS: Emergency Provider Emergency Medicine; PCP Internal Medicine
DX: N20.1 Calculus of ureter (principal); Z87.442 Personal history of urinary calculi; R11.2 Nausea with vomiting, unspecified
CPT/HCPCS: 36415; 74176; 80053; 81001; 81003; 83690; 85025; 96361; 96374; 96375; 96376; 99284; J1885; J2270; J2405

== ENCOUNTER → 2020-06-02 07:00 | Outpatient (CLI) | payer MEDICARE, SELFPAY ==
--- NOTE | 2020-06-02 | DI.US.S_ITS ---
PROCEDURE: US RENAL COMPLETE INDICATIONS: Calculus of kidney TECHNIQUE: Real-time scanning was performed of the kidneys and bladder, with image documentation. COMPARISON: [facility], CT, CT KIDNEY URETER BLADDER (KUB), 01/26/2020, 9:29. FINDINGS: Kidneys: Kidneys are normal in size. Right kidney measures 12.7 cm long; left kidney measures 12.1 cm long. Right renal cortical thickness is 1.6 cm; left renal cortical thickness is 1.5 cm. Renal cortical echotexture is normal. No hydronephrosis. 5 millimeter nonobstructing stone identified in the upper pole of the left kidney. No suspicious solid mass lesions. Bladder: Pre-void bladder volume is 258 mL. Post-void residual is 0 mL. Pre-void images demonstrate no intraluminal masses or stones. On pre-void images, both the right and left ureteral jets are noted with color Doppler interrogation. (Of note, ureteral jets may not be detectable in up to 25% of cases due to insufficient differences in specific gravity between ureteral and bladder urine). Miscellaneous: No free pelvic fluid. IMPRESSION: 1. 5 millimeter nonobstructing left renal stone. 2. No hydronephrosis. Dictated by: Fara Rendon MD, PhD on 06/02/2020 at 13:27 Approved by: Fara Rendon MD, PhD on 06/02/2020 at 13:32
== END ==
PROVIDERS: PCP Internal Medicine; Referring Provider Urology; Visit Provider Urology
DX: N20.0 Calculus of kidney (principal)
CPT/HCPCS: 76770

== ENCOUNTER → 2020-08-18 09:55 | Outpatient (CLI) | payer MEDICARE, SELFPAY ==
[2020-08-18 10:52] LABS: Add Manual Diff / Slide Review NO; Basophils Absolute Auto 0 /uL (0-100); Basophils Percent Auto 0.6 % (0-2); Eosinophils Absolute Auto 100 /uL (0-450); Eosinophils Percent Auto 1.6 % (2-4); Hematocrit 44.1 % (36-46); Hemoglobin 14.6 g/dL (12.0-16.0); Lymphocytes Absolute Auto 1100 /uL (1100-4500); Lymphocytes Percent Auto 26.5 % (25-40); Mean Corpuscular HGB Conc 33.2 % (30-36); Mean Corpuscular Hemoglobin 28.4 PG (26-34); Mean Corpuscular Volume 85.6 fL (80-100); Monocytes Absolute Auto 500 /uL (0-900); Monocytes Percent Auto 11.2 % (3-14); Neutrophils Absolute Auto 2500 /uL (1500-7000); Neutrophils Percent Auto 60.1 % (50-75); Platelet Count 187 X10^3/uL (150-400); Red Blood Cell Count 5.15 X10^6/uL (4.0-5.2); Red Cell Distribution Width 13.2 % (11.6-14.8); White Blood Cell Count 4.2 X10^3/uL (4.5-11.0)
[2020-08-18 11:13] LABS: Alanine Aminotransferase 25 IU/L (<35); Albumin 4.1 g/dL (3.5-5.0); Albumin Globulin Ratio 1.4 (1.0-2.8); Alkaline Phosphatase 95 U/L (38-126); Aspartate Aminotransferase 25 IU/L (14-36); BUN Creatinine Ratio 28.1 (6-22); Blood Urea Nitrogen 16 mg/dL (7-17); Calcium 9.9 mg/dL (8.4-10.2); Carbon Dioxide 27 mmol/L (22-32); Chloride 105 mmol/L (98-107); Estimated Glomerular Filt Rate > 60.0 mL/min (>60); Glucose 111 mg/dL (80-110); HEMOLYSIS < 15 (0-50); Potassium 4.1 mmol/L (3.4-5.1); Sodium 139 mmol/L (137-145); Total Protein 7.1 g/dL (6.3-8.2)
[2020-08-18 11:14] LABS: Erythrocyte Sedimentation Rate 6 MM/HR (0-20)
[2020-08-18 11:52] LABS: Appearance Urine UA CLEAR; Bilirubin Urine UA NEGATIVE (NEGATIVE); Color Urine UA YELLOW; Glucose Urine UA NEGATIVE (Negative); Ketones Urine UA NEGATIVE (NEGATIVE); Leukocyte Esterase Urine UA NEGATIVE (NEGATIVE); Nitrite Urine UA NEGATIVE (Negative); Occult Blood Urine UA 3+ (Negative); Protein Urine UA NEGATIVE (Negative); Specific Gravity Urine UA 1.025 (1.000-1.035); Urobilinogen Urine UA 0.2 E.U./dL (0.2)
[2020-08-18 12:09] LABS: Bacteria Urine Occasional (0-1); Calcium Oxalate Crystals Urine Many; Culture Indicated Urine Cult Not Indicated; RBC Urine 1-5/HPF (0-5/HPF); Squamous Epithelial Cell Urine 0-1 /HPF (0-5/HPF); WBC Urine 0-1/HPF (0-5/HPF)
== END ==
PROVIDERS: PCP Internal Medicine; Referring Provider Internal Medicine Rheumatology; Visit Provider Internal Medicine Rheumatology
DX: R78.89 Finding of other specified substances, not normally found in blood (principal); M25.50 Pain in unspecified joint; M32.9 Systemic lupus erythematosus, unspecified; M35.00 Sjogren syndrome, unspecified
CPT/HCPCS: 36415; 80053; 81001; 85025; 85651

== ENCOUNTER → 2020-12-07 10:25 | Outpatient (CLI) | payer MEDICARE, SELFPAY ==
--- NOTE | 2020-12-07 | DI.MG.S_ITS ---
BILATERAL DIGITAL SCREENING MAMMOGRAM 3D/2D WITH CAD: 12/07/2020 CLINICAL: Routine screening. Family history of breast cancer. Comparison is made to exams dated: 11/13/2019 mammogram, 07/30/2018 mammogram, and 07/24/2017 mammogram - [facility]. There are scattered fibroglandular elements in both breasts. Current study was also evaluated with a Computer Aided Detection (CAD) system. There are benign calcifications in both breasts. No significant masses, calcifications, or other findings are seen in either breast. There has been no significant interval change. IMPRESSION: BENIGN There is no mammographic evidence of malignancy. A 1 year screening mammogram is recommended. This exam was interpreted at Station ID: [id number]. NOTE: For mammograms, a report in lay terms will be sent to the patient. Approximately 15% of breast malignancies will not be visualized mammographically. In the management of a palpable breast mass, a negative mammogram must not discourage biopsy of a clinically suspicious lesion. Electronically Signed By: Cecilio burt/radhames:12/07/2020 10:56:39 letter sent: Normal Exam ACR BI-RADS Category 2: Benign Finding(s) 3342F
== END ==
PROVIDERS: PCP Internal Medicine; Referring Provider Internal Medicine; Visit Provider Internal Medicine
DX: Z12.31 Encounter for screening mammogram for malignant neoplasm of breast (principal); Z80.3 Family history of malignant neoplasm of breast
CPT/HCPCS: 77063; 77067

== ENCOUNTER 2021-08-20 15:03 | Emergency (ER) | payer MEDICARE, SELFPAY ==
[2021-08-20] VITALS (17 sets, daily range): BP systolic 155–203; BP diastolic 80–132; PULSE 82–91; RESP 20–46; TEMP 36.6; O2SAT 95–99; BMI 36.6
--- NOTE | 2021-08-20 15:13 | DI.RAD.S_ITS ---
PROCEDURE: XR CHEST 1V INDICATIONS: HTN, weak, foggy TECHNIQUE: One view of the chest was acquired. COMPARISON: [facility], , CHEST 2 VIEW, 05/16/2017, 15:11. FINDINGS: Surgical changes and devices: None. Lungs and pleura: Lungs are clear. No pleural effusions or pneumothorax. Mediastinum: Mediastinal contours appear normal. Heart size is normal. Bones and chest wall: No suspicious bony lesions. Overlying soft tissues appear unremarkable. IMPRESSION: No acute cardiopulmonary disease. Dictated by: Margarito Hernandez M.D. on 08/20/2021 at 14:37 Approved by: Margarito Hernandez M.D. on 08/20/2021 at 14:37
[2021-08-20 15:27] LABS: Add Manual Diff / Slide Review NO; Basophils Absolute Auto 0 /uL (0-100); Basophils Percent Auto 0.6 % (0-2); Eosinophils Absolute Auto 100 /uL (0-450); Eosinophils Percent Auto 1.7 % (2-4); Hematocrit 45.5 % (36-46); Hemoglobin 15.6 g/dL (12.0-16.0); Lymphocytes Absolute Auto 1200 /uL (1100-4500); Lymphocytes Percent Auto 20.7 % (25-40); Mean Corpuscular HGB Conc 34.4 % (30-36); Mean Corpuscular Hemoglobin 28.9 PG (26-34); Monocytes Absolute Auto 600 /uL (0-900); Monocytes Percent Auto 9.5 % (3-14); Neutrophils Absolute Auto 4000 /uL (1500-7000); Neutrophils Percent Auto 67.5 % (50-75); Platelet Count 200 X10^3/uL (150-400); Red Blood Cell Count 5.42 X10^6/uL (4.0-5.2); Red Cell Distribution Width 13.3 % (11.6-14.8); White Blood Cell Count 5.9 X10^3/uL (4.5-11.0)
--- NOTE | 2021-08-20 15:34 | ED_ITS ---
HPI - General Adult General Chief complaint: Hypertension Stated complaint: BP 183/107 little foggy also Time Seen by Provider: 08/20/21 15:12 Source: patient Mode of arrival: Ambulatory History of Present Illness HPI narrative: 65-year-old female nonsmoker with history of hypertension and GERD presents with a chief complaint of mild headache and feeling foggy over the past day or 2. She notes that her blood pressure has been as high as the 200s over 100s at home which is significantly elevated for her and she decided to come for evaluation. She denies any blurred vision or trouble with speech. She has no focal findings such as numbness, tingling or weakness. She denies chest pain or shortness of breath and has no nausea, vomiting or diarrhea. She was a teen he takes losartan 100 mg daily and denies any change in her dosing regimen, pharmacy, etc.. Related Data Home Medications Medication Instructions Recorded Confirmed omeprazole 20 mg capsule,delayed 20 mg PO PRN PRN #0 09/09/11 05/10/21 release hydroxychloroquine 200 mg tablet 200 mg PO AMCC #0 07/19/16 05/10/21 mirabegron 50 mg tablet,extended 50 mg PO QDAY #0 07/19/16 05/10/21 release 24 hr (Myrbetriq) losartan 100 mg tablet 100 mg PO DAILY 04/01/18 05/10/21 ResMed AirSense 11 05/10/21 05/10/21 Previous Rx's Medication Instructions Recorded zolpidem 5 mg tablet 5 mg PO BEDTIME #30 tab 07/27/21 metoprolol tartrate 25 mg tablet 25 mg PO BID #30 tab 08/20/21 Allergies Allergy/AdvReac Type Severity Reaction Status Date / Time Sulfa (Sulfonamide Allergy Unknown Verified 05/10/21 10:05 Antibiotics) [SULFA (SULFONAMIDE ANTIBIOTICS)] lisinopril [LISINOPRIL] AdvReac Mild COUGH Verified 05/10/21 10:05 Review of Systems Review of Systems Narrative: GENERAL: Denies chills, fatigue, malaise, fever, sweats. HEENT: Denies sinus pain, ear pain, sore throat, difficulty swallowing, dizzines s. RESPIRATORY: Denies dyspnea, cough, wheezing, hemoptysis, sputum. CARDIOVASCULAR: Denies chest pain, palpitations, orthopnea, edema, GASTROINTESTINAL: Denies nausea, vomiting, abdominal pain, diarrhea, constipation, melena. : Denies dysuria, frequency, incontinence, hematuria, urinary retention. MUSCULOSKELETAL: denies weakness, joint pain, or bony pain SKIN: Denies rash, skin lesions, or other NEUROLOGIC: Denies weakness, headache, numbness, change in speech, confusion, seizures, incoordination. PSYCHIATRIC: No concerning psychosocial issues. 12 point review of systems is negative except for those stated above Patient History Medical History (Updated 08/20/21 @ 17:46 by Darinel Munoz DO) Anxiety disorder due to general medical condition Insomnia due to medical condition classified elsewhere Obstructive sleep apnea of adult Periodic limb movement disorder (PLMD) Restless leg syndrome Social History Smoking Status: Never smoker Smoking Status: Never smoker alcohol intake frequency: 0-2 drinks per day Alcohol type: wine Substance Use Type: does not use Exam Narrative Exam Narrative: GENERAL: [65 year old patient appears stated age. Well-developed patient, in mild distress. HEAD: Atraumatic. Normocephalic. EYES: Pupils equal round and reactive. Extraocular motions intact. No scleral i cterus. No injection or drainage. ENT: Nose without bleeding, purulent drainage. Throat without erythema, tonsillar hypertrophy or exudate. Airway patent. NECK: Trachea midline. Non tender CARDIOVASCULAR: Regular rate and rhythm without murmurs, gallops, or rubs. RESPIRATORY: Clear to auscultation. Breath sounds equal bilaterally. No wheezes, rales, or rhonchi. GASTROINTESTINAL: Abdomen soft, non-tender, nondistended. EXTREMITIES: No edema or joint tenderness. BACK: Nontender without deformity or crepitance. No flank tenderness. NEURO: AOx3. SKIN: No rash or erythema of visible areas Initial Vital Signs Initial Vital Signs: Vital Signs Temperature 97.8 F 08/20/21 15:05 Pulse Rate 88 08/20/21 15:05 Respiratory Rate 20 08/20/21 15:05 Blood Pressure 202/97 H 08/20/21 15:05 Pulse Oximetry 95 08/20/21 15:05 Course Orders Ordered: ED Orders 08/20/21 15:13 XR chest 1V Stat EKG-12 Lead Stat 08/20/21 15:17 Complete Blood Count AUTO DIFF Stat Comprehensive Metabolic Panel Stat Lipase Stat NT-proBNP (BNP-Adult 18+) Stat Troponin & CK Cardiac Panel Stat Sodium Chloride (Normal Saline 0.9%) 1,000 mls @ 150 mls/hr IV CONT MECCA Last Infusion: 08/20/21 17:41 Dose: 0 mls/hr Documented by: Admin: 08/20/21 15:36 Dose: 150 mls/hr Documented by: JOE Discontinued Medications Labetalol HCl (Labetalol 20 Mg/4 Ml Syringe) 10 mg IV NOW ONE Stop: 08/20/21 17:02 Last Admin: 08/20/21 17:08 Dose: 10 mg Documented by: JOE Metoprolol Succinate (Metoprolol Er 25 Mg Tablet) 25 mg PO NOW ONE Stop: 08/20/21 17:44 Reevaluation(s) Reevaluation #1: Patient id as blood pressure improved to the 160s over 80s after labetalol. Her symptoms completely resolve with this reduction. Her baseline blood pressure tends to run in the 150s over 90s per her own admission. Vital Signs Vital signs: Vital Signs - 8 hr 08/20/21 15:05 08/20/21 15:08 08/20/21 15:30 Temperature 97.8 F Pulse Rate 88 86 87 Respiratory Rate 20 38 H Blood Pressure 202/97 H 202/97 H Pulse Oximetry 95 95 98 08/20/21 15:31 08/20/21 16:00 08/20/21 16:01 Temperature Pulse Rate 87 88 88 Respiratory Rate 29 H 27 H 21 Blood Pressure 165/94 H 182/81 H Pulse Oximetry 99 96 97 08/20/21 16:30 08/20/21 16:31 08/20/21 16:51 Temperature Pulse Rate 90 88 91 H Respiratory Rate 29 H 28 H 29 H Blood Pressure 192/84 H 203/132 H Pulse Oximetry 96 97 97 08/20/21 17:00 08/20/21 17:08 08/20/21 17:15 Temperature Pulse Rate 88 88 82 Respiratory Rate 26 H 20 Blood Pressure 191/89 H 191/89 H 182/89 H Pulse Oximetry 98 97 08/20/21 17:30 Temperature Pulse Rate 84 Respiratory Rate 26 H Blood Pressure 167/81 H Pulse Oximetry 95 Medical Decision Making Lab Data Result diagrams: 08/20/21 15:17 08/20/21 15:17 Labs: Lab Results 08/20/21 08/20/21 Range/Units 15:17 15:17 WBC 5.9 (4.5-11.0) X10^3/uL RBC 5.42 H (4.0-5.2) X10^6/uL Hgb 15.6 (12.0-16.0) g/dL Hct 45.5 (36-46) % MCV 84.0 (80-100) fL MCH 28.9 (26-34) PG MCHC 34.4 (30-36) % RDW 13.3 (11.6-14.8) % Plt Count 200 (150-400) X10^3/uL Neut % (Auto) 67.5 (50-75) % Lymph % (Auto) 20.7 L (25-40) % [place] % (Auto) 9.5 (3-14) % Eos % (Auto) 1.7 L (2-4) % Baso % (Auto) 0.6 (0-2) % Neut # (Auto) 4000 (4694-7773) /uL Lymph # (Auto) 1200 (5636-2575) /uL [place] # (Auto) 600 (0-900) /uL Eos # (Auto) 100 (0-450) /uL Baso # (Auto) 0 (0-100) /uL Sodium 142 (137-145) mmol/L Potassium 3.6 (3.4-5.1) mmol/L Chloride 106 (98-107) mmol/L Carbon Dioxide 29 (22-32) mmol/L BUN 18 H (7-17) mg/dL Creatinine 0.57 (0.52-1.04) mg/dL Estimated GFR > 60 (>60) mL/min BUN/Creatinine Ratio 31.6 H (6-22) Glucose 97 (80-110) mg/dL Calcium 9.8 (8.4-10.2) mg/dL Total Bilirubin 1.1 (0.2-1.3) mg/dL AST 24 (14-36) IU/L ALT 21 (<35) IU/L Alkaline Phosphatase 107 (38-126) U/L Total Creatine Kinase 38 (30-135) U/L CK-MB (CK-2) TNP CK-MB (CK-2) Rel Index TNP Troponin I < 0.012 (0.01-0.034) ng/mL NT-Pro-B Natriuret Pep 73 (<125) pg/mL Total Protein 7.9 (6.3-8.2) g/dL Albumin 4.6 (3.5-5.0) g/dL Globulin 3.3 (1.7-4.1) g/dL Albumin/Globulin Ratio 1.4 (1.0-2.8) Lipase 126 (23-300) U/L MDM Narrative Medical decision making narrative: Patient with reassuring history and physical exam and symptoms likely related to elevated blood pressure. Diagnostics are reassuring as is her response to therapies. No indication for hospitalization. Patient given return precautions and questions have been answered to her apparent satisfaction Discharge Plan Departure Patient Disposition: Home Clinical Impression: Hypertension Instructions: DI for High Blood Pressure Activity Restrictions/Additional Instructions: *You have been diagnosed with [symptomatic hypertension. Your history, physical exam, labs and other diagnostics as well as response to therapies are very reassuring. *What to do: *Please continue to take your regular medications as directed. [x] New medication prescriptions sent to your pharmacy: [[facility]] [ ] New medication written as a paper prescription [ ] No new medications given *Please follow up with your primary care provider in 2-3 days, call for an appointment. Let them know you were seen in the Emergency Department and that we ask that you be seen in follow up. We will electronically transmit a record of today's note if your PCP is in our system *If you do not have a primary care provider please contact the [facility] Resource line at [phone]. They will ask some questions about your medical history and help get you set up with a doctor in the community. *Return to Emergency Department if you should have any new, worsening or concerning symptoms, such as [fever greater than 101 F, shaking chills, worsening pain, persistent vomiting or other bothersome symptoms] Prescriptions: New metoprolol tartrate 25 mg tablet 25 mg PO BID Qty: 30 0RF No Action omeprazole 20 MG capsule,delayed release(DR/EC) 20 mg PO PRN PRNQty: 0 0RF hydroxychloroquine 200 MG tablet 200 mg PO AMCC Qty: 0 0RF mirabegron [Myrbetriq] 50 MG tablet extended release 24 hr 50 mg PO QDAY Qty: 0 0RF zolpidem 5 mg tablet 5 mg PO BEDTIME Qty: 30 0RF losartan 100 mg tablet 100 mg PO DAILY 0RF (DME) ResMed AirSense 11 See Rx Instructions .ROUTE .MEDSUPPLY 0RF Rx Instructions: CPAP Min: 7 Max: 12 DME: PHM Referrals: Sd Lyon MD [Primary Care Provider] -
[2021-08-20] MEDS: SODIUM CHLORIDE 0.9% 1,000 ML 150 ML IV (15:36)
[2021-08-20 15:39] LABS: Alanine Aminotransferase 21 IU/L (<35); Albumin 4.6 g/dL (3.5-5.0); Albumin Globulin Ratio 1.4 (1.0-2.8); Alkaline Phosphatase 107 U/L (38-126); Aspartate Aminotransferase 24 IU/L (14-36); BUN Creatinine Ratio 31.6 (6-22); Bilirubin Total 1.1 mg/dL (0.2-1.3); Blood Urea Nitrogen 18 mg/dL (7-17); Calcium 9.8 mg/dL (8.4-10.2); Carbon Dioxide 29 mmol/L (22-32); Chloride 106 mmol/L (98-107); Creatine Kinase 38 U/L (30-135); Estimated Glomerular Filt Rate > 60 mL/min (>60); Globulin 3.3 g/dL (1.7-4.1); Glucose 97 mg/dL (80-110); HEMOLYSIS 30 (0-50); Lipase 126 U/L (23-300); Potassium 3.6 mmol/L (3.4-5.1); Sodium 142 mmol/L (137-145); Total Protein 7.9 g/dL (6.3-8.2)
[2021-08-20 15:51] LABS: NT-proBNP (BNP-Adult 18+) 73 pg/mL (<125); Troponin I < 0.012 ng/mL (0.01-0.034)
[2021-08-20] MEDS: LABETALOL 20 MG/4 ML SYRINGE 10 MG IV (17:08)
[2021-08-20] MEDS: METOPROLOL ER 25 MG TABLET PO (17:59)
== END 2021-08-20 19:16 | disposition home or self-care (01) ==
PROVIDERS: Emergency Provider Emergency Medicine; PCP Internal Medicine
DX: I10 Essential (primary) hypertension (principal)
CPT/HCPCS: 36415; 71045; 80053; 82550; 83690; 83880; 84484; 85025; 93005; 93010; 96374; 99284

== ENCOUNTER → 2021-12-13 08:20 | Outpatient (CLI) | payer MEDICARE, SELFPAY ==
--- NOTE | 2021-12-13 | DI.MG.S_ITS ---
BILATERAL DIGITAL SCREENING MAMMOGRAM 3D/2D WITH CAD: 12/13/2021 CLINICAL: Routine screening. Family history of breast cancer. Comparison is made to exams dated: 12/07/2020 mammogram, 11/13/2019 mammogram, 07/30/2018 mammogram, and 07/24/2017 mammogram - [facility]. There are scattered areas of fibroglandular density in both breasts (category b / 25%-50% glandular tissue). Current study was also evaluated with a Computer Aided Detection (CAD) system. There is a benign focal asymmetry in both breasts. There also are benign calcifications in both breasts. No significant masses, calcifications, or other findings are seen in either breast. There has been no significant interval change. IMPRESSION: BENIGN There is no mammographic evidence of malignancy. A 1 year screening mammogram is recommended. Based on the Tyrer Cuzick model (a risk assessment model) the patient's lifetime risk is 6.8% and her 10 year risk is 3.6%. According to the ACR, ACS, and NCCN guidelines, an annual breast MRI exam along with mammogram is recommended if the patient's lifetime risk is 20% or greater. This exam was interpreted at Station ID: [id number]. NOTE: For mammograms, a report in lay terms will be sent to the patient. Approximately 15% of breast malignancies will not be visualized mammographically. In the management of a palpable breast mass, a negative mammogram must not discourage biopsy of a clinically suspicious lesion. Electronically Signed By: Taylor ramirez/radhames:12/13/2021 12:15:15 letter sent: Normal Exam ACR BI-RADS Category 2: Benign Finding(s) 3342F
== END ==
PROVIDERS: PCP Internal Medicine; Referring Provider Internal Medicine; Visit Provider Internal Medicine
DX: Z12.31 Encounter for screening mammogram for malignant neoplasm of breast (principal); Z80.3 Family history of malignant neoplasm of breast
CPT/HCPCS: 77063; 77067

== ENCOUNTER → 2022-01-23 09:06 | Outpatient (CLI) | payer MEDICARE, SELFPAY ==
[2022-01-23 14:20] LABS: Cholesterol 99 mg/dL (140-199); HDL Cholesterol 43 mg/dL (40-60); LDL Cholesterol Calculated 45 mg/dL (<100); Triglycerides 57 mg/dL (35-150)
== END ==
PROVIDERS: PCP Internal Medicine; Referring Provider Internal Medicine; Visit Provider Internal Medicine
DX: E78.2 Mixed hyperlipidemia (principal)
CPT/HCPCS: 36415; 80061

== ENCOUNTER → 2022-01-30 07:05 | Outpatient (CLI) | payer MEDICARE, SELFPAY ==
--- NOTE | 2022-01-30 | DI.US.S_ITS ---
PROCEDURE: US RENAL COMPLETE INDICATIONS: Calculus of kidney TECHNIQUE: Real-time scanning was performed of the kidneys and bladder, with image documentation. COMPARISON: [facility], , RENAL COMPLETE, 06/02/2020, 7:14. FINDINGS: Kidneys: Kidneys are normal in size. Right kidney measures 11.8 cm long; left kidney measures 11.9 cm long. Right renal cortical thickness is 1.7 cm; left renal cortical thickness is 1.2 cm. Renal cortical echotexture is normal. There are two stones clustered in the upper pole collecting system, nonobstructive, measuring five and 7 mm, slightly increased size compared to the prior study. No right intrarenal calculi. No hydronephrosis. No suspicious solid mass lesions. Bladder: Pre-void bladder volume is 334 mL. Post-void residual is 0 mL. Pre-void images demonstrate no intraluminal masses or stones. On pre-void images, bilateral ureteral jets are noted with color Doppler interrogation. (Of note, ureteral jets may not be detectable in up to 25% of cases due to insufficient differences in specific gravity between ureteral and bladder urine). Miscellaneous: No free pelvic fluid. IMPRESSION: 1. Persistent, minimally larger nonobstructing left upper pole nephrolithiasis. 2. Otherwise normal kidneys and urinary bladder. Dictated by: Taylor Calvert M.D. on 01/30/2022 at 9:12 Approved by: Taylor Calvert M.D. on 01/30/2022 at 9:15
--- NOTE | 2022-01-30 07:05 | DI.RAD.S_ITS ---
PROCEDURE: XR DEXA AXIAL SKELETON INDICATIONS: postmenopausal COMPARISON: Located [facility], , DEXA AXIAL SKELETON, 07/05/2016, 11:11. FINDINGS: This blank DEXA report has been sent in error by the PACS system. The correct and complete report will be forthcoming in 1-2 days. Thank you for your patience and understanding. Dictated by: Isidro Ruiz M.D. on 01/30/2022 at 15:53 Approved by: Isidro Ruiz M.D. on 01/30/2022 at 15:54
== END ==
PROVIDERS: PCP Internal Medicine; Referring Provider Internal Medicine; Visit Provider Internal Medicine
DX: M85.852 Other specified disorders of bone density and structure, left thigh (principal); N20.0 Calculus of kidney; Z13.820 Encounter for screening for osteoporosis; Z78.0 Asymptomatic menopausal state; Z90.710 Acquired absence of both cervix and uterus
CPT/HCPCS: 76770; 77080

== ENCOUNTER → 2022-07-26 09:16 | Outpatient (CLI) | payer MEDICARE, SELFPAY ==
[2022-07-26 10:05] LABS: Hematocrit 42.9 % (36-46); Hemoglobin 14.4 g/dL (12.0-16.0); Mean Corpuscular HGB Conc 33.6 % (30-36); Mean Corpuscular Hemoglobin 28.5 PG (26-34); Platelet Count 170 X10^3/uL (150-400); Red Blood Cell Count 5.04 X10^6/uL (4.0-5.2); Red Cell Distribution Width 13.8 % (11.6-14.8); White Blood Cell Count 4.2 X10^3/uL (4.5-11.0)
[2022-07-26 10:39] LABS: Erythrocyte Sedimentation Rate 7 MM/HR (0-20)
[2022-07-26 10:47] LABS: Alanine Aminotransferase 33 IU/L (<35); Albumin 3.8 g/dL (3.5-5.0); Albumin Globulin Ratio 1.3 (1.0-2.8); Alkaline Phosphatase 75 U/L (38-126); Aspartate Aminotransferase 25 IU/L (14-36); BUN Creatinine Ratio 32.8 (6-22); Bilirubin Total 1.1 mg/dL (0.2-1.3); Blood Urea Nitrogen 20 mg/dL (7-17); C-Reactive Protein Quant < 0.5 mg/dL (<1.0); Calcium 9.8 mg/dL (8.4-10.2); Carbon Dioxide 32 mmol/L (22-32); Chloride 103 mmol/L (98-107); Cholesterol 112 mg/dL (140-199); Estimated Glomerular Filt Rate > 60 mL/min (>60); Glucose 97 mg/dL (80-110); HDL Cholesterol 47 mg/dL (40-60); HEMOLYSIS < 15 (0-50); LDL Cholesterol Calculated 51 mg/dL (<100); Potassium 4.7 mmol/L (3.4-5.1); Sodium 140 mmol/L (137-145); Total Protein 6.8 g/dL (6.3-8.2); Triglycerides 72 mg/dL (35-150)
[2022-07-26 11:12] LABS: TSH w/ Reflex to FT4 1.37 uIU/mL (0.47-4.68)
[2022-07-27 01:59] LABS: Labcorp Hemoglobin (Hb) A1c 6.1 % (4.8-5.6)
== END ==
PROVIDERS: PCP Internal Medicine; Referring Provider Internal Medicine; Visit Provider Internal Medicine
DX: E78.2 Mixed hyperlipidemia; I10 Essential (primary) hypertension; M32.9 Systemic lupus erythematosus, unspecified
CPT/HCPCS: 36415; 80053; 80061; 83036; 84443; 85027; 85651; 86140

== ENCOUNTER → 2022-09-08 14:47 | Outpatient (CLI) | payer MEDICARE, SELFPAY ==
[2022-09-08 15:00] LABS: Appearance Urine UA CLEAR; Bilirubin Urine UA NEGATIVE (NEGATIVE); Color Urine UA YELLOW; Glucose Urine UA NEGATIVE (Negative); Ketones Urine UA NEGATIVE (NEGATIVE); Leukocyte Esterase Urine UA NEGATIVE (NEGATIVE); Nitrite Urine UA NEGATIVE (Negative); Occult Blood Urine UA 1+ (Negative); Protein Urine UA NEGATIVE (Negative); Specific Gravity Urine UA <=1.005 (1.000-1.035); Urobilinogen Urine UA 0.2 E.U./dL (0.2)
[2022-09-08 15:13] LABS: Amorphous Sediment Urine 1+; Bacteria Urine Few (2-10); Culture Indicated Urine Specimen Cultured; RBC Urine 0-1/HPF (0-5/HPF); Squamous Epithelial Cell Urine 0-1 /HPF (0-5/HPF); WBC Urine 0-1/HPF (0-5/HPF)
== END ==
PROVIDERS: PCP Internal Medicine; Referring Provider Urology; Visit Provider Urology
DX: N39.41 Urge incontinence (principal)
CPT/HCPCS: 81001; 87086

== ENCOUNTER → 2023-01-22 16:31 | Outpatient (CLI) | payer MEDICARE, SELFPAY ==
[2023-01-22 17:07] LABS: Hematocrit 46.6 % (36-46); Hemoglobin 15.5 g/dL (12.0-16.0); Mean Corpuscular HGB Conc 33.3 % (30-36); Mean Corpuscular Hemoglobin 28.7 PG (26-34); Mean Corpuscular Volume 86.1 fL (80-100); Platelet Count 177 X10^3/uL (150-400); Red Blood Cell Count 5.41 X10^6/uL (4.0-5.2); Red Cell Distribution Width 13.9 % (11.6-14.8); White Blood Cell Count 5.7 X10^3/uL (4.5-11.0)
[2023-01-22 17:29] LABS: Erythrocyte Sedimentation Rate 3 MM/HR (0-20)
[2023-01-22 17:30] LABS: Hemoglobin A1C% w Est Avg Glu 5.7 % (4.0-6.0)
[2023-01-22 17:31] LABS: Alanine Aminotransferase 31 IU/L (<35); Albumin 4.3 g/dL (3.5-5.0); Albumin Globulin Ratio 1.3 (1.0-2.8); Alkaline Phosphatase 79 U/L (38-126); Aspartate Aminotransferase 29 IU/L (14-36); Bilirubin Total 1.3 mg/dL (0.2-1.3); Blood Urea Nitrogen 26 mg/dL (7-17); C-Reactive Protein Quant < 0.5 mg/dL (<1.0); Calcium 10.3 mg/dL (8.4-10.2); Carbon Dioxide 28 mmol/L (22-32); Chloride 104 mmol/L (98-107); Estimated Glomerular Filt Rate > 60 mL/min (>60); Globulin 3.3 g/dL (1.7-4.1); Glucose 95 mg/dL (80-110); HEMOLYSIS 25 (0-50); Potassium 3.9 mmol/L (3.4-5.1); Sodium 139 mmol/L (137-145); Total Protein 7.6 g/dL (6.3-8.2)
[2023-01-22 18:11] LABS: Appearance Urine UA CLEAR; Bilirubin Urine UA NEGATIVE (NEGATIVE); Color Urine UA YELLOW; Glucose Urine UA NEGATIVE (Negative); Ketones Urine UA NEGATIVE (NEGATIVE); Leukocyte Esterase Urine UA TRACE (NEGATIVE); Nitrite Urine UA NEGATIVE (Negative); Occult Blood Urine UA 2+ (Negative); Protein Urine UA NEGATIVE (Negative); Specific Gravity Urine UA >=1.030 (1.000-1.035)
[2023-01-22 18:45] LABS: Bacteria Urine Few (2-10); Calcium Oxalate Crystals Urine Moderate; Culture Indicated Urine Specimen Cultured; RBC Urine 1-5/HPF (0-5/HPF); Squamous Epithelial Cell Urine 1-5 /HPF (0-5/HPF); WBC Urine 0-1/HPF (0-5/HPF)
[2023-01-24 05:15] LABS: Complement C3 128 mg/dL (82-167)
== END ==
PROVIDERS: PCP Internal Medicine; Referring Provider Internal Medicine; Visit Provider Internal Medicine
DX: M32.9 Systemic lupus erythematosus, unspecified (principal); M06.9 Rheumatoid arthritis, unspecified; E78.2 Mixed hyperlipidemia
CPT/HCPCS: 80053; 81001; 83036; 85027; 85651; 86140; 86160; 87086

== ENCOUNTER → 2023-01-29 07:32 | Outpatient (CLI) | payer MEDICARE, SELFPAY ==
--- NOTE | 2023-01-29 | DI.MG.S_ITS ---
BILATERAL DIGITAL SCREENING MAMMOGRAM 3D/2D WITH CAD: 01/29/2023 CLINICAL: Routine screening. Family history of breast cancer. Comparison is made to exams dated: 12/13/2021 mammogram, 12/07/2020 mammogram, and 11/13/2019 mammogram - [facility]. There are scattered areas of fibroglandular density in both breasts (category b / 25%-50% glandular tissue). Current study was also evaluated with a Computer Aided Detection (CAD) system. No significant masses, calcifications, or other findings are seen in either breast. IMPRESSION: NEGATIVE There is no mammographic evidence of malignancy. A 1 year screening mammogram is recommended. Based on the Tyrer Cuzick model (a risk assessment model) the patient's lifetime risk is 6.4% and her 10 year risk is 3.6%. According to the ACR, ACS, and NCCN guidelines, an annual breast MRI exam along with mammogram is recommended if the patient's lifetime risk is 20% or greater. This exam was interpreted at Station ID: [id number]. NOTE: For mammograms, a report in lay terms will be sent to the patient. Approximately 15% of breast malignancies will not be visualized mammographically. In the management of a palpable breast mass, a negative mammogram must not discourage biopsy of a clinically suspicious lesion. Electronically Signed By: Jasmina vasquez/radhames:01/29/2023 09:24:34 letter sent: Normal Exam ACR BI-RADS Category 1: Negative 3341F
== END ==
PROVIDERS: PCP Internal Medicine; Referring Provider Internal Medicine; Visit Provider Internal Medicine
DX: Z12.31 Encounter for screening mammogram for malignant neoplasm of breast (principal); Z80.3 Family history of malignant neoplasm of breast
CPT/HCPCS: 77063; 77067

== ENCOUNTER → 2023-07-30 08:12 | Outpatient (CLI) | payer MEDICARE, SELFPAY ==
[2023-07-30 08:50] LABS: Appearance Urine UA CLEAR; Bilirubin Urine UA NEGATIVE (NEGATIVE); Color Urine UA YELLOW; Glucose Urine UA NEGATIVE (Negative); Ketones Urine UA NEGATIVE (NEGATIVE); Leukocyte Esterase Urine UA TRACE (NEGATIVE); Nitrite Urine UA NEGATIVE (Negative); Occult Blood Urine UA 1+ (Negative); Protein Urine UA NEGATIVE (Negative); Specific Gravity Urine UA >=1.030 (1.000-1.035); Urobilinogen Urine UA 0.2 E.U./dL (0.2)
[2023-07-30 09:04] LABS: Urine Volume 10mL (spun)
[2023-07-30 09:06] LABS: Bacteria Urine None Seen; Culture Indicated Urine Specimen Cultured; RBC Urine 5-10/HPF (0-5/HPF); Squamous Epithelial Cell Urine 0-1 /HPF (0-5/HPF); WBC Urine 1-5/HPF (0-5/HPF)
[2023-07-30 09:08] LABS: Add Manual Diff / Slide Review NO; Basophils Absolute Auto 0 /uL (0-100); Basophils Percent Auto 0.6 % (0-2); Eosinophils Absolute Auto 300 /uL (0-450); Eosinophils Percent Auto 5.9 % (2-4); Hematocrit 43.7 % (36-46); Hemoglobin 14.6 g/dL (12.0-16.0); Lymphocytes Absolute Auto 1300 /uL (1100-4500); Lymphocytes Percent Auto 27.1 % (25-40); Mean Corpuscular HGB Conc 33.4 % (30-36); Mean Corpuscular Hemoglobin 29.1 PG (26-34); Mean Corpuscular Volume 87.1 fL (80-100); Monocytes Absolute Auto 600 /uL (0-900); Monocytes Percent Auto 12.8 % (3-14); Neutrophils Absolute Auto 2600 /uL (1500-7000); Neutrophils Percent Auto 53.6 % (50-75); Platelet Count 184 X10^3/uL (150-400); Red Blood Cell Count 5.02 X10^6/uL (4.0-5.2); Red Cell Distribution Width 13.5 % (11.6-14.8); White Blood Cell Count 4.8 X10^3/uL (4.5-11.0)
[2023-07-30 09:26] LABS: Alanine Aminotransferase 23 IU/L (<35); Albumin 4.2 g/dL (3.5-5.0); Albumin Globulin Ratio 1.4 (1.0-2.8); Alkaline Phosphatase 79 U/L (38-126); Aspartate Aminotransferase 24 IU/L (14-36); BUN Creatinine Ratio 34.4 (6-22); Bilirubin Total 1.4 mg/dL (0.2-1.3); Blood Urea Nitrogen 22 mg/dL (7-17); Carbon Dioxide 29 mmol/L (22-32); Chloride 107 mmol/L (98-107); Estimated Glomerular Filt Rate > 60 mL/min (>60); Glucose 112 mg/dL (80-110); HEMOLYSIS < 15 (0-50); Potassium 4.6 mmol/L (3.4-5.1); Sodium 141 mmol/L (137-145); Total Protein 7.2 g/dL (6.3-8.2)
[2023-07-30 11:24] LABS: Erythrocyte Sedimentation Rate 1 MM/HR (0-20)
[2023-07-31 05:14] LABS: Complement C3 118 mg/dL (82-167)
== END ==
LOC: LAB 08:13
PROVIDERS: PCP Internal Medicine; Referring Provider Internal Medicine Rheumatology; Visit Provider Internal Medicine Rheumatology
DX: M35.00 Sjogren syndrome, unspecified (principal); M32.9 Systemic lupus erythematosus, unspecified
CPT/HCPCS: 36415; 80053; 81001; 85025; 85651; 86160; 87086

== ENCOUNTER → 2023-11-16 09:52 | Outpatient (CLI) | payer MEDICARE, SELFPAY ==
--- NOTE | 2023-11-16 09:53 | DI.US.S_ITS ---
PROCEDURE: US RENAL COMPLETE INDICATIONS: NEPHROLITHIASIS TECHNIQUE: Real-time scanning was performed of the kidneys and bladder, with image documentation. COMPARISON: [facility], , RENAL COMPLETE, 01/30/2022, 7:31. FINDINGS: Kidneys: Kidneys are normal in size. Right kidney measures 11.9 cm long; left kidney measures 11.4 cm long. Right renal cortical thickness is 1.8 cm; left renal cortical thickness is 1.5 cm. Renal cortical echotexture is normal. No hydronephrosis bilaterally. No right-sided nephrolithiasis. Left-sided nonobstructive nephrolith measuring 1 cm. No suspicious solid mass lesions. Bladder: Pre-void bladder volume is 301 mL. Post-void residual is 83 mL. Pre-void images demonstrate no intraluminal masses or stones. On pre-void images, bilateral ureteral jets are noted with color Doppler interrogation. (Of note, ureteral jets may not be detectable in up to 25% of cases due to insufficient differences in specific gravity between ureteral and bladder urine). Miscellaneous: No free pelvic fluid. IMPRESSION: 1. No hydronephrosis bilaterally. 2. Left-sided nonobstructive nephrolith measuring 1 cm. No right-sided nephrolithiasis. 3. Postvoid residual is 83 mL. Dictated by: Matthew Main M.D. on 11/16/2023 at 19:25 Approved by: Matthew Main M.D. on 11/16/2023 at 19:27
== END ==
PROVIDERS: PCP Family Medicine; Referring Provider Urology; Visit Provider Urology
DX: N20.0 Calculus of kidney (principal)
CPT/HCPCS: 76770

== ENCOUNTER → 2023-12-31 06:54 | Outpatient (CLI) | payer MEDICARE, SELFPAY ==
[2023-12-31 09:03] LABS: Cholesterol 108 mg/dL (140-199); HDL Cholesterol 48 mg/dL (40-60); LDL Cholesterol Calculated 47 mg/dL (<100); Triglycerides 67 mg/dL (35-150)
[2023-12-31 09:23] LABS: Hemoglobin A1C% w Est Avg Glu 5.9 % (4.0-6.0)
== END ==
PROVIDERS: PCP Family Medicine; Referring Provider Family Medicine; Visit Provider Family Medicine
DX: R73.03 Prediabetes (principal); E78.5 Hyperlipidemia, unspecified
CPT/HCPCS: 36415; 80061; 83036

== ENCOUNTER → 2024-02-20 08:45 | Outpatient (CLI) | payer MEDICARE, SELFPAY ==
--- NOTE | 2024-02-20 08:46 | DI.MG.S_ITS ---
BILATERAL DIGITAL DIAGNOSTIC MAMMOGRAM 3D/2D: 02/20/2024 CLINICAL: Right breast diffuse intermittent pain. Comparison is made to exams dated: 01/29/2023 mammogram, 12/13/2021 mammogram, 12/07/2020 mammogram, 11/13/2019 mammogram, and 07/30/2018 mammogram - [facility]. There are scattered areas of fibroglandular density (category b / 25%-50% glandular tissue). No significant masses, calcifications, or other findings are seen in either breast. Of note, because the patient's symptoms are diffuse, no BB marker was placed. IMPRESSION: NEGATIVE No mammographic evidence of malignancy. A 1 year screening mammogram is recommended. Of note, because the patient's symptoms are diffuse, no ultrasound is indicated. Diffuse, non-focal symptoms, such as pain or fullness are typically benign. Clinical follow-up is recommended, and further management of these symptoms should be based on the results of clinical evaluation. If diffuse symptoms persist or become more focal in nature, further clinical evaluation should be considered. Findings and recommendations were conveyed to the patient during today's evaluation. Based on the Tyrer Cuzick model (a risk assessment model) the patient's lifetime risk is 6.1% and her 10 year risk is 3.6%. According to the ACR, ACS, and NCCN guidelines, an annual breast MRI exam along with mammogram is recommended if the patient's lifetime risk is 20% or greater. This exam was interpreted at Station ID: [id number]. NOTE: For mammograms, a report in lay terms will be sent to the patient. Approximately 15% of breast malignancies will not be visualized mammographically. In the management of a palpable breast mass, a negative mammogram must not discourage biopsy of a clinically suspicious lesion. Electronically Signed By: Jasmina Carmona M.D., Ph.D. eb/:02/20/2024 09:31:57 letter sent: Clinical Evaluation ACR BI-RADS Category 1: Negative
== END ==
PROVIDERS: PCP Family Medicine; Referring Provider Family Medicine; Visit Provider Family Medicine
DX: N64.4 Mastodynia (principal)
CPT/HCPCS: 77066; G0279

== ENCOUNTER → 2024-08-07 20:25 | Outpatient (CLI) | payer MEDICARE, SELFPAY ==
--- NOTE | 2024-08-07 20:33 | DI.RAD.S_ITS ---
PROCEDURE: XR CHEST 2V INDICATIONS: r/o PNA, 1 m cough after viral URI TECHNIQUE: 2 views of the chest were acquired. COMPARISON: [facility], CR, XR CHEST 1V, 08/20/2021, 15:25. FINDINGS: Surgical changes and devices: None. Lungs and pleura: Lungs are clear. No pleural effusions or pneumothorax. Mediastinum: Mediastinal contours are normal. Heart size is normal. Bones and chest wall: No suspicious bony abnormalities. Soft tissues appear unremarkable. IMPRESSION: No acute cardiopulmonary abnormalities or focal consolidation. Dictated by: Cleveland Rand M.D. on 08/08/2024 at 23:54 Approved by: Cleveland Rand M.D. on 08/08/2024 at 23:54
--- NOTE | 2024-08-07 20:33 | DI.RAD.S_ITS ---
PROCEDURE: XR KNEE RT 3V INDICATIONS: r/o tibial plateu fracture after fall up stairs TECHNIQUE: 3 views of the knee were acquired. COMPARISON: None. FINDINGS: Bones: No fractures or dislocations. No suspicious bony lesions. Moderate tricompartmental degenerative changes of the right knee with moderate joint space loss of the lateral patellofemoral compartment. Soft tissues: No joint effusion. No suspicious soft tissue calcifications. IMPRESSION: No acute bony abnormality or significant effusion. Moderate tricompartmental osteoarthrosis. If there is persistent clinical concern for occult fracture given adequate mechanism of injury, consider repeat imaging in 10-14 days. Immobilization as clinically indicated. Dictated by: Cleveland Rand M.D. on 08/08/2024 at 23:54 Approved by: Cleveland Rand M.D. on 08/08/2024 at 23:56
== END ==
PROVIDERS: PCP Family Medicine; Referring Provider Family Medicine; Visit Provider Family Medicine
DX: M17.11 Unilateral primary osteoarthritis, right knee (principal); R05.8 Other specified cough; M25.569 Pain in unspecified knee
CPT/HCPCS: 71046; 73562

== ENCOUNTER → 2024-08-25 08:15 | Outpatient (CLI) | payer MEDICARE, SELFPAY ==
[2024-08-25 09:09] LABS: Add Manual Diff / Slide Review NO; Basophils Absolute Auto 0 /uL (0-100); Basophils Percent Auto 0.6 % (0-2); Eosinophils Absolute Auto 200 /uL (0-450); Eosinophils Percent Auto 3.5 % (2-4); Hematocrit 42.4 % (36-46); Hemoglobin 14.2 g/dL (12.0-16.0); Lymphocytes Absolute Auto 1000 /uL (1100-4500); Lymphocytes Percent Auto 21.8 % (25-40); Mean Corpuscular HGB Conc 33.4 % (30-36); Mean Corpuscular Volume 86.9 fL (80-100); Monocytes Absolute Auto 600 /uL (0-900); Monocytes Percent Auto 13.8 % (3-14); Neutrophils Absolute Auto 2600 /uL (1500-7000); Neutrophils Percent Auto 60.3 % (50-75); Platelet Count 167 X10^3/uL (150-400); Red Blood Cell Count 4.88 X10^6/uL (4.0-5.2); Red Cell Distribution Width 13.4 % (11.6-14.8); White Blood Cell Count 4.4 X10^3/uL (4.5-11.0)
[2024-08-25 09:16] LABS: Hemoglobin A1C% w Est Avg Glu 5.7 % (4.0-6.0)
[2024-08-25 09:27] LABS: Alanine Aminotransferase 22 IU/L (<35); Albumin 4.2 g/dL (3.5-5.0); Albumin Globulin Ratio 1.7 (1.0-2.8); Alkaline Phosphatase 90 U/L (38-126); Aspartate Aminotransferase 22 IU/L (14-36); BUN Creatinine Ratio 32.8 (6-22); Bilirubin Total 1.8 mg/dL (0.2-1.3); Blood Urea Nitrogen 20 mg/dL (7-17); Calcium 10.2 mg/dL (8.4-10.2); Carbon Dioxide 28 mmol/L (22-32); Chloride 102 mmol/L (98-107); Estimated Glomerular Filt Rate > 60 mL/min (>60); Globulin 2.5 g/dL (1.7-4.1); Glucose 111 mg/dL (70-99); HEMOLYSIS < 15 (0-50); Potassium 4.3 mmol/L (3.4-5.1); Sodium 138 mmol/L (137-145); Total Protein 6.7 g/dL (6.3-8.2)
[2024-08-25 09:42] LABS: Erythrocyte Sedimentation Rate 31 MM/HR (0-20)
[2024-08-25 09:50] LABS: Appearance Urine UA SL CLOUDY; Bilirubin Urine UA NEGATIVE (NEGATIVE); Color Urine UA YELLOW; Glucose Urine UA NEGATIVE (Negative); Ketones Urine UA NEGATIVE (NEGATIVE); Leukocyte Esterase Urine UA 1+ (NEGATIVE); Nitrite Urine UA POSITIVE (Negative); Occult Blood Urine UA 2+ (Negative); Protein Urine UA NEGATIVE (Negative); Specific Gravity Urine UA >=1.030 (1.000-1.035); Urobilinogen Urine UA 0.2 E.U./dL (0.2)
[2024-08-25 09:51] LABS: pH Urine UA 5.5 (4.5-8.0)
[2024-08-25 09:52] LABS: Urine Volume 10mL (spun)
[2024-08-25 09:53] LABS: RBC Urine 1-5/HPF (0-5/HPF); WBC Urine 5-10/HPF (0-5/HPF)
[2024-08-25 09:54] LABS: Bacteria Urine Many (>30); Culture Indicated Urine Specimen Cultured; Squamous Epithelial Cell Urine None Seen (0-5/HPF)
[2024-08-25 09:59] LABS: Creatinine Urine Random 133.61 mg/dL; Protein (Total) Urine Random 10 mg/dL (0-12); Protein Creatinine Ratio Urine 0.07 GRAM/24H
[2024-08-26 04:08] LABS: Complement C3 127 mg/dL (82-167)
== END ==
LOC: LAB 08:16
PROVIDERS: PCP Family Medicine; Referring Provider Internal Medicine Rheumatology; Visit Provider Internal Medicine Rheumatology
DX: R73.03 Prediabetes (principal); M32.9 Systemic lupus erythematosus, unspecified; I10 Essential (primary) hypertension; E78.2 Mixed hyperlipidemia
CPT/HCPCS: 36415; 80053; 81001; 82570; 83036; 84156; 85025; 85651; 86160; 87086

== ENCOUNTER → 2024-08-25 12:45 | Outpatient (CLI) | payer MEDICARE, SELFPAY ==
--- NOTE | 2024-08-25 12:49 | DI.US.S_ITS ---
PROCEDURE: US PELVIC COMPLETE INDICATIONS: PAIN TECHNIQUE: Real-time scanning was performed of the pelvic organs, with image documentation. Additional endovaginal scanning was necessary due to incomplete visualization of the adnexal and endometrial structures by transabdominal scanning. COMPARISON: None. FINDINGS: Uterus: Uterus is surgically absent. Ovaries: Not visualized, due to overlying bowel gas. Other: No pathologic free abdominal or pelvic fluid. IMPRESSION: Hysterectomy. Ovaries not seen due to overlying bowel gas (or surgical absence). No acute abnormality otherwise. We strive to produce accurate, complete, and clear reports of imaging services. To assist us in improving patient care, this report was composed using standard report templates and voice recognition software. Therefore, it may contain abnormal punctuation, insertions and/or omissions. Occasional wrong-word or sound-alike substitutions may occur. Though we review the report and make efforts to correct it, we do recommend that the report be read carefully in proper context to recognize any text inaccuracies. Dictated by: Fortino Ward M.D. on 08/25/2024 at 14:09 Approved by: Fortino Ward M.D. on 08/25/2024 at 14:10
--- NOTE | 2024-08-25 12:49 | DI.US.S_ITS ---
PROCEDURE: US ABDOMEN COMPLETE INDICATIONS: PAIN TECHNIQUE: Real-time scanning was performed of the abdominal and retroperitoneal organs, with image documentation. COMPARISON: [facility], US, US RENAL COMPLETE, 06/02/2020, 7:14. FINDINGS: Liver: Liver is normal in size and homogeneous in echotexture. Gallbladder: Normal. No stones. Biliary ducts: Intrahepatic bile ducts are non-dilated. Extrahepatic bile duct caliber measures 6 mm. Normal is 6-7 mm or less in diameter, or 10 mm or less post-cholecystectomy. Pancreas: Visualized portions of the pancreas are sonographically normal. Spleen: Spleen is normal in size and homogeneous in echotexture. Kidneys: Kidneys are normal in size and echotexture. Right kidney measures 12.2 cm long; left kidney measures 11.6 cm long. No hydronephrosis. Nonobstructing 9 mm stone in the superior pole of the left kidney. 1.8 cm right renal cyst with thin internal septation, Bosniak 2 equivalent requiring no further follow-up. Aorta: Visualized aorta is normal in caliber at less than 3 cm. Iliacs: Proximal common iliac arteries are normal in caliber at less than 2.5 cm. IVC: Intrahepatic inferior vena cava is patent. Miscellaneous: No free abdominal fluid. IMPRESSION: Nonobstructing left-sided nephrolithiasis measuring 8 mm. Otherwise, no acute abnormality. Dictated by: Fortino Ward M.D. on 08/25/2024 at 14:13 Approved by: Fortino Ward M.D. on 08/25/2024 at 14:15
== END ==
PROVIDERS: PCP Family Medicine; Referring Provider Family Medicine; Visit Provider Family Medicine
DX: N20.0 Calculus of kidney (principal); N28.1 Cyst of kidney, acquired; R19.7 Diarrhea, unspecified; R10.9 Unspecified abdominal pain; R14.0 Abdominal distension (gaseous)
CPT/HCPCS: 36415; 76700; 76830; 76856; 80053; 81001; 82570; 83036; 84156; 85025; 85651; 86160; 87077; 87086; 87186

== ENCOUNTER → 2024-08-26 07:20 | Outpatient (CLI) | payer MEDICARE, SELFPAY | PROVIDERS: PCP Family Medicine; Referring Provider Family Medicine; Visit Provider Family Medicine | DX: R19.7 Diarrhea, unspecified (principal); R10.9 Unspecified abdominal pain | CPT/HCPCS: 87045; 87177 ==

== ENCOUNTER → 2024-09-25 14:05 | Outpatient (CLI) | payer MEDICARE, SELFPAY | PROVIDERS: PCP Family Medicine; Visit Provider Family Medicine | DX: R35.0 Frequency of micturition (principal); R82.90 Unspecified abnormal findings in urine | CPT/HCPCS: 87077; 87086; 87186 ==

== ENCOUNTER → 2024-10-09 12:45 | Outpatient (CLI) | payer MEDICARE, SELFPAY ==
[2024-10-09 13:13] LABS: Appearance Urine UA CLOUDY; Bilirubin Urine UA NEGATIVE (NEGATIVE); Color Urine UA YELLOW; Glucose Urine UA NEGATIVE (Negative); Ketones Urine UA NEGATIVE (NEGATIVE); Leukocyte Esterase Urine UA TRACE (NEGATIVE); Nitrite Urine UA POSITIVE (Negative); Occult Blood Urine UA 1+ (Negative); Protein Urine UA NEGATIVE (Negative); Urobilinogen Urine UA 0.2 E.U./dL (0.2)
[2024-10-09 13:28] LABS: RBC Urine 1-5/HPF (0-5/HPF); Urine Volume 10mL (spun); WBC Urine 1-5/HPF (0-5/HPF)
[2024-10-09 13:29] LABS: Amorphous Sediment Urine 1+; Bacteria Urine Many (>30); Culture Indicated Urine Specimen Cultured; Squamous Epithelial Cell Urine 1-5 /HPF (0-5/HPF)
== END ==
PROVIDERS: PCP Family Medicine; Referring Provider Family Medicine; Visit Provider Family Medicine
DX: R30.0 Dysuria (principal)
CPT/HCPCS: 81001; 87077; 87086

== ENCOUNTER → 2024-10-16 10:25 | Outpatient (CLI) | payer MEDICARE, SELFPAY | PROVIDERS: PCP Family Medicine; Visit Provider Family Medicine | DX: R35.0 Frequency of micturition (principal); R32 Unspecified urinary incontinence; N39.0 Urinary tract infection, site not specified | CPT/HCPCS: 87077; 87086; 87186 ==

== ENCOUNTER → 2024-11-04 12:28 | Outpatient (CLI) | payer MEDICARE, SELFPAY | PROVIDERS: PCP Family Medicine; Referring Provider Family Medicine; Visit Provider Family Medicine | DX: R35.0 Frequency of micturition (principal); R30.9 Painful micturition, unspecified | CPT/HCPCS: 87086 ==

== ENCOUNTER → 2024-11-11 08:48 | Outpatient (CLI) | payer MEDICARE, SELFPAY ==
--- NOTE | 2024-11-11 09:00 | DI.CT.S_ITS ---
PROCEDURE: CT ABDOMEN PELVIS WO CON INDICATIONS: abdominal pain, change in stool caliber, suprapubic pain TECHNIQUE: CT of the abdomen and pelvis was obtained without intravenous contrast. Coronal and sagittal reformats were performed. For radiation dose reduction, the following was used: automated exposure control, adjustment of mA and/or kV according to patient size. COMPARISON: [facility], CT, CT KIDNEY URETER BLADDER (KUB), 01/26/2020, 9:29. FINDINGS: Image quality: Diagnostic. Lower Chest: No significant findings. ABDOMEN: Liver: No contour-deforming mass. Gallbladder: No radiopaque gallstones or wall thickening. Biliary ducts: No biliary dilation. Pancreas: No ductal dilation. No peripancreatic inflammation. Spleen: Size is within normal limits. Adrenal Glands: No adrenal nodules. Kidneys and Ureters: No hydronephrosis. No contour-deforming mass. There is a 6 mm nonobstructing left renal stone measuring approximately 550 Hounsfield units in density. Right kidney is without renal stones or hydronephrosis. Right ureter is normal in course and caliber. Stomach and Bowel: Normal colonic caliber, without significant wall thickening. Scattered colonic diverticula without acute inflammation. Normal appendix. No evidence for small bowel obstruction or associated inflammatory changes. Peritoneum: No abnormal intraperitoneal fluid. No free air. Ventral Wall: No significant hernia. Abdominal Nodes: No retroperitoneal or mesenteric adenopathy by size criteria. Vessels: Aorta and inferior vena cava are normal in size. PELVIS: Pelvic Organs: Status post hysterectomy. The bilateral ovary/adnexa appear unremarkable in noncontrast appearance. Bladder: Unremarkable. Pelvic Nodes: No enlarged lymph nodes. Miscellaneous: No inguinal hernias are seen. Bones: No aggressive osseous abnormality. Visualized osseous structures appear intact without acute fracture or focal destructive lesion. No acute compression fractures of the imaged spine. IMPRESSION: Nonobstructing 6 mm left renal stone measuring approximately 550 Hounsfield units in density. Otherwise, no evidence for hydronephrosis on either side. Colonic diverticulosis without acute diverticulitis. Normal appendix. Status post hysterectomy and unremarkable noncontrast appearance of the bilateral ovary/adnexa. Dictated by: Cleveland Rand M.D. on 11/11/2024 at 15:02 Approved by: Cleveland Rand M.D. on 11/11/2024 at 15:12
== END ==
LOC: CT 08:48
PROVIDERS: PCP Family Medicine; Referring Provider Family Medicine; Visit Provider Family Medicine
DX: K59.00 Constipation, unspecified (principal); R10.2 Pelvic and perineal pain; R14.0 Abdominal distension (gaseous); N20.0 Calculus of kidney; K57.90 Diverticulosis of intestine, part unspecified, without perforation or abscess without bleeding; Z90.710 Acquired absence of both cervix and uterus
CPT/HCPCS: 74176

== ENCOUNTER 2025-01-08 07:40 | Day surgery (SDC) | payer MEDICARE, SELFPAY ==
[2025-01-08 07:59] VITALS: BP 153/94; PULSE 71; RESP 16; TEMP 36.4; O2SAT 94
[2025-01-08] MEDS: LACTATED RINGERS 1,000 ML 84 ML IV (08:06)
--- NOTE | 2025-01-08 08:43 | PM.HP.IH.1 ---
History of Present Illness History of Present Illness Date Patient Seen: 01/08/25 Time Patient Seen: 08:43 Chief complaint: SDC Narrative: Caterina is a 69-year-old woman presents for colonoscopy. Her last one was about 10 years ago when she was 59. It was normal. No family history of colon cancer. [facility] Medical History (Updated 01/08/25 @ 08:44 by Jared Tolbert MD) Acute cystitis Diarrhea Insomnia Atrial fibrillation Constipation Genital HSV Urinary frequency Hyperlipidemia Pre-diabetes GERD without esophagitis Osteopenia Impaired fasting glucose Obesity (BMI 30.0-34.9) High risk medication use Allergic rhinitis Primary osteoarthritis involving multiple joints Mixed hyperlipidemia Urinary incontinence Impingement syndrome, shoulder, left Cervical radiculopathy Essential hypertension Sjogrens syndrome Insomnia due to medical condition classified elsewhere Anxiety disorder due to general medical condition Periodic limb movement disorder (PLMD) Restless leg syndrome Obstructive sleep apnea of adult Social History Smoking Status: Never smoker Meds Home Medications and Allergies Home Medications ?Medication ?Instructions ?Recorded ?Confirmed ?Type omeprazole 20 mg capsule,delayed 20 mg PO PRN PRN heartburn ##0 09/09/11 01/08/25 History release hydroxychloroquine 200 mg tablet 200 mg PO [facility] ##0 07/19/16 11/07/24 History cholecalciferol (vitamin D3) 25 25 mcg PO DAILY 01/20/22 11/07/24 History mcg (1,000 unit) capsule valacyclovir 1 gram tablet 1,000 mg PO BID #6 tabs 10/29/23 11/07/24 Rx carvedilol 3.125 mg tablet 3.125 mg PO BID #180 tabs 04/02/24 01/08/25 Rx zolpidem 5 mg tablet 5 mg PO BEDTIME insomnia #30 tabs 06/09/24 11/07/24 Rx estradiol 0.01% (0.1 mg/gram) 1 g vaginal DAILY #42.5 grams 10/16/24 11/07/24 Rx vaginal cream (Estrace) losartan 100 mg tablet 100 mg PO DAILY #90 tabs 12/18/24 01/08/25 Rx metformin 500 mg tablet,extended 500 mg PO BID #90 tabs 12/18/24 01/08/25 Rx release 24 hr rosuvastatin 10 mg tablet 10 mg PO DAILY #90 tabs 12/18/24 Rx Allergies Allergy/AdvReac Type Severity Reaction Status Date / Time Sulfa (Sulfonamide Allergy Unknown Verified 01/08/25 07:57 Antibiotics) (SULFA (SULFONAMIDE ANTIBIOTICS)) lisinopril (LISINOPRIL) AdvReac Mild COUGH Verified 01/08/25 07:57 Exam Vital Signs (past 8 hours): - 01/08/25 07:59 Temperature 97.6 F Pulse Rate 71 Respiratory Rate 16 Blood Pressure 153/94 H Pulse Oximetry 94 Oxygen Delivery Method Room Air Oxygen Delivery Method Room Air Const General: healthy appearing Assessment & Plan Assessment and plan (1) Colon cancer screening: Status: Acute Plan Colonoscopy Time-Based Coding :: [TOTAL MINUTES] spent with patient and on the chart (including review of chart, obtaining history, exam, reviewing outside data, placing orders, documenting exam and treatment plan, and counseling patient) on [DATE]. PROFEE Instructor Nurse Document charge(s): No
[2025-01-08 09:12] VITALS: BP 127/96; PULSE 68; RESP 16; TEMP 36.2; O2SAT 98
--- NOTE | 2025-01-08 09:16 | PM.OP.COLON ---
Operative Date/Time/Diagnoses Date of procedure: 01/08/25 Time of procedure: 09:16 Pre-op diagnosis: Colon cancer screening Post-op diagnosis: same Procedure & Clinicians Study performed: Colonoscopy Same procedure(s) as scheduled: Yes Surgeon: Jared Tolbert Anesthesia Type: MAC +/- Procedure Notes Procedure in detail: Surgeon: Jared Tolbert MD Anesthesia: Dustin Byers MD Procedure: The patient was brought to the endoscopy suite, placed in left lateral decubitus position. The patient was connected to monitoring devices. A time-out was performed. Sedation was administered. Once the patient was adequately sedated, a digital rectal exam was performed and was normal. The scope was then inserted and advanced to the cecum where the appendiceal orifice was identified and photographed. The scope was then slowly withdrawn over greater than 6 minutes. The mucosa was thoroughly inspected. No mucosal abnormalities were found. There was some sigmoid diverticulosis. The scope was retroflexed in the rectum. No other abnormalities were found. The scope was straightened and removed. The patient was awakened and brought to recovery. Scope withdrawal time: 6 minutes Sedation time: 11 minutes EBL: 0 Findings: Sigmoid diverticulosis Post-procedure Recommendations: Colonoscopy in 10 years Disposition: PACU
[2025-01-08 09:17] VITALS: BP 124/74; PULSE 78; RESP 16; O2SAT 98
[2025-01-08 09:22] VITALS: BP 124/74; PULSE 78; RESP 16; O2SAT 98
[2025-01-08 09:34] VITALS: BP 124/74; PULSE 74; RESP 16; TEMP 36.2; O2SAT 98
== END 2025-01-08 09:38 | disposition home or self-care (01) ==
PROVIDERS: PCP Family Medicine; Referring Provider Family Medicine; Visit Provider Surgery
PROC: 0DJD8ZZ Inspection of Lower Intestinal Tract, Via Natural or Artificial Opening Endoscopic (ICD-10-PCS; CPT 45378; principal; 2025-01-08 08:45)
DX: Z12.11 Encounter for screening for malignant neoplasm of colon (principal); K57.30 Diverticulosis of large intestine without perforation or abscess without bleeding
CPT/HCPCS: G0121; J2250; J2704

== ENCOUNTER → 2025-01-19 11:00 | Outpatient (CLI) | payer MEDICARE, SELFPAY ==
[2025-01-19 13:11] LABS: Appearance Urine UA CLEAR; Bilirubin Urine UA NEGATIVE (NEGATIVE); Color Urine UA YELLOW; Glucose Urine UA NEGATIVE (Negative); Ketones Urine UA NEGATIVE (NEGATIVE); Leukocyte Esterase Urine UA NEGATIVE (NEGATIVE); Nitrite Urine UA NEGATIVE (Negative); Occult Blood Urine UA 1+ (Negative); Protein Urine UA NEGATIVE (Negative); Specific Gravity Urine UA <=1.005 (1.000-1.035); Urobilinogen Urine UA 0.2 E.U./dL (0.2)
[2025-01-19 13:13] LABS: pH Urine UA 5.5 (4.5-8.0)
[2025-01-19 13:15] LABS: Culture Indicated Urine Cult Not Indicated
== END ==
PROVIDERS: PCP Family Medicine; Visit Provider Family Medicine
DX: R35.0 Frequency of micturition (principal); R10.24 Suprapubic pain
CPT/HCPCS: 81001; 87086

== ENCOUNTER → 2025-04-07 12:46 | Outpatient (CLI) | payer MEDICARE, SELFPAY ==
--- NOTE | 2025-04-07 12:47 | DI.MG.S_ITS ---
MM screening mammo BI: 04/07/2025. BI-RADS: 1 CLINICAL: 69-year old female for bilateral screening mammogram. Tyrer-Cuzick lifetime risk of 3.4%. No personal or first-degree family history of breast cancer. PRIOR EXAMS 02/20/2024, 01/29/2023, 12/13/2021, 12/07/2020. MAMMOGRAPHY TECHNIQUE: 2D and 3D (tomosynthesis) digital mammographic views obtained, with additional images as needed for full coverage. Current study was also evaluated with a Computer Aided Detection (CAD) system. DENSITY B. There are scattered areas of fibroglandular density. MAMMOGRAPHY FINDINGS Bilateral: No suspicious mass, asymmetry, microcalcification, or other abnormality seen. No significant change from comparison. IMPRESSION: * No evidence of malignancy. RECOMMENDATIONS Bilateral * Annual screening mammography. OVERALL ASSESSMENT CATEGORY BI-RADS-1: Negative. The [employer] recommends annual screening mammography beginning at age 40 for women with average risk of breast cancer. ELECTRONICALLY SIGNED: Cecilio Dean M.D. on 04/07/2025 at 04:15:23 PM PT Interpreting Station ID: [id number]
== END ==
LOC: MAMMO 12:46
PROVIDERS: PCP Family Medicine; Referring Provider Family Medicine; Visit Provider Family Medicine
DX: Z12.31 Encounter for screening mammogram for malignant neoplasm of breast (principal)
CPT/HCPCS: 77063; 77067